=== PATIENT | female | born 1985 | race Caucasian/White ===

== ENCOUNTER 2024-08-30 03:29 | Emergency (ER) | payer OTHER, SELFPAY ==
--- NOTE | 2024-08-30 03:31 | ED_ITS ---
HPI - General Adult General Time Seen by Provider: 03:31 Date Seen: 08/30/24 Chief complaint: Unspecified Complaint, Adult Stated complaint: Heart Racing Time Seen by Provider: 08/30/24 03:31 Source: patient, RN notes reviewed and old records reviewed Mode of arrival: ambulatory Limitations: no limitations History of Present Illness HPI narrative: 39-year-old female who comes in today with palpitations. Patient reports she understood the bathroom, got back to through the bed and felt like her heart was beating fast, felt some shortness when lightheadedness as well. Reports her heart rate was about 120. She feels better now although not back to normal. Denies recent illness, medications, alcohol or caffeine use. No prior episodes like this. [facility] Medical History (Updated 08/30/24 @ 04:27 by Julian Appiah MD) No significant past medical history Surgical History (Updated 08/30/24 @ 03:36 by Yan Fernández RN) No significant past surgical history Social History Smoking Status: Never smoker Second hand tobacco smoke exposure: No How often do you have a drink containing alcohol: never AUDIT-C Alcohol total score: 0 Non-prescribed substance use: denies use Exam Narrative: Exam Narrative: General: Well-developed and well-nourished, no acute distress Head: Atraumatic and normocephalic Eyes: Pupils are equal reactive, extraocular motions intact, conjunctiva clear ENT: External nose and ears are normal, posterior pharynx without erythema or exudate Neck: No midline cervical tenderness, full spontaneous range of motion the neck, trachea midline, no adenopathy Heart: Regular rate and rhythm no murmurs or thrills Lungs: Clear to auscultation bilaterally without wheezes or crackles Abdomen: Soft, nontender, nondistended with active bowel sounds Musculoskeletal: No tenderness, deformity, or edema Neurologic: Awake, alert, and oriented x3, no gross focal neurologic deficits, cranial nerves intact as tested Psych: Mood and affect are appropriate Skin: No rashes Const: Vital Signs, click to edit/add: Vital Signs - 24 hr 08/30/24 03:33 Temperature 98.2 F Pulse Rate [Right Pulse Oximeter] 82 Respiratory Rate 18 Blood Pressure [Ri ght Upper Arm] 145/81 H Pulse Oximetry 99 Oxygen Delivery Me thod Room Air Course Course ED Course: Reviewed medical record, no prior records. Patient presents today with palpitations and shortness of breath with lightheadedness occurring just prior to coming the emergency department. Symptoms are improved now. She reports her heart rate was around 120. We discussed possible causes for this including sinus tachycardia, VT. Atrial flutter fibrillation less likely. EKG is reassuring, labs ordered and will monitor in the department. If normal evaluation, patient be discharged with outpatient evaluation including Zio patch and consider echocardiogram. Did consider D-dimer or CT PE study but no pleuritic-type chest pain with this, oxygen saturation 99%, tachycardia resolved. EKG independently interpreted by me performed at 3:39 a.m. demonstrates sinus rhythm rate 86, right axis deviation, nonspecific T-wave changes, no acute ischemic changes, QTC 445, WY 150, no prior for comparison. Reevaluation(s) Time of Reevaluation #1: 04:25 Reevaluation #1: Labs independently interpreted by me with mild anemia but otherwise normal CBC, negative D-dimer, normal basic panel other than glucose of 156, magnesium normal, troponin 0.01. Patient remains stable in the emergency department no tachycardia. Follow-up with primary care for Holter monitor and further evaluation. Vital Signs Vital signs: Initial Vital Signs Temperature 98.2 F 08/30/24 03:33 Temperature Source Temporal Artery Scan 08/30/24 03:33 Pulse Rate 82 08/30/24 03:33 Pulse Rhythm Regular 08/30/24 03:33 Pulse Strength 3+ Normal 08/30/24 03:33 Respiratory Rate 18 08/30/24 03:33 Blood Pressure 145/81 H 08/30/24 03:33 Blood Pressure Mean 102 08/30/24 03:33 Blood Pressure Position Sitting 08/30/24 03:33 Pulse Oximetry 99 08/30/24 03:33 Oxygen Delivery Method Room Air 08/30/24 03:33 Vital Signs Temperature 98.2 F 08/30/24 03:33 Pulse Rate 82 08/30/24 03:33 Respiratory Rate 18 08/30/24 03:33 Blood Pressure 145/81 H 08/30/24 03:33 Pulse Oximetry 99 08/30/24 03:33 Oxygen Delivery Method Room Air 08/30/24 03:33 Temperature 98.2 F 08/30/24 03:33 Pulse Rate 82 08/30/24 03:33 Respiratory Rate 18 08/30/24 03:33 Blood Pressure 145/81 H 08/30/24 03:33 Pulse Oximetry 99 08/30/24 03:33 Oxygen Delivery Method Room Air 08/30/24 03:33 Medical Decision Making Lab Data Labs: Lab Results 08/30/24 08/30/24 Range/Units 03:48 03:50 WBC 6.54 (4.50-11.00) K/uL RBC 3.85 L (4.00-5.20) m/uL Hgb 11.9 L (12.0-16.0) gm/dL Hct 35.4 (33.0-51.0) % MCV 92 (80-100) fL MCH 31 (26-34) pg MCHC 34 (32-36) gm/dL RDW Coeff of Janki 12.0 (11.5-15.5) % Plt Count 233 (140-440) K/uL Neut % (Auto) 58.4 (42.0-72.0) % Lymph % (Auto) 28.0 (20-44) % Lamar % (Auto) 6.7 (0.0-11.0) % Eos % (Auto) 6.3 (0.0-7.0) % Baso % (Auto) 0.6 (0.0-3.0) % Neut # (Auto) 3.82 (1.7-7.0) K/uL Lymph # (Auto) 1.83 (0.90-2.90) K/uL Lamar # (Auto) 0.40 (0.00-0.90) K/UL Eos # (Auto) 0.41 (0.00-0.50) K/uL Baso # (Auto) 0.04 (0.00-0.30) K/uL Abs Immat Gran (auto) 0.00 (0.00-0.30) K/uL Imm/Tot Granulo (auto) 0.0 % D-Dimer Quant (PE/DVT) 0.06 (0.00-0.50) ug/ml Sodium 138 (135-149) mmol/L Potassium 3.7 (3.6-5.1) mmol/L Chloride 104 (96-114) mmol/L Carbon Dioxide 26 (20-32) mmol/L Anion Gap 8 (7-15) mEq/L BUN 16 (5-24) mg/dL Creatinine 0.8 (0.5-1.5) mg/dL Estimated Creat Clear 89.26 Estimated GFR 97 ml/min Glucose 156 H (60-115) mg/dL Calcium 9.2 (8.4-10.6) mg/dL Magnesium 2.0 (1.5-2.6) mg/dL POC Troponin I 0.01 (0.01-0.04) ng/ml Discharge Plan Discharge Clinical Impression: Palpitations Patient Disposition: Home, Self-Care Instructions: Heart Palpitations (DC) Additional Instructions: Follow-up with primary care for further evaluation and treatment Activity Level: No Restrictions Discharge Diet: Regular Follow Up/Referrals: Provider,Not a Local [Primary Care Provider, Family Practice] Stand Alone Forms: MyHealth Info Instructions
[2024-08-30 03:33] VITALS: BP 145/81; PULSE 82; RESP 18; TEMP 36.8; O2SAT 99; BMI 23.4
--- OUTSIDE RECORDS SUMMARY | 2024-08-30 03:52 | XMS_ITS | Encounter Summary ---
Author Organization [facility] Address [address] [place] [address] Care Team Providers Care Library Monitor Name Role Phone No Ref-Primary, Physician Primary Care Provider Esther Stodadrd CNM Unavailable EduardoJaniceMoraima CNM Unavailable Kelli Austin CNM Unavailable [phone] Janice Clark Jo CNM Unavailable Venus Robertson CNM Unavailable [phone] AustinEnzoKelli A CNM Unavailable [phone] Janice lCark CNM Unavailable Prakash Mercy DAWN CNM Unavailable [phone] Norman Kelli Spring CNM Unavailable [phone] Mer[facility] Randall APRN CNM Unavailable [phone] Janice Clark Jo CNM Unavailable Encounter Details Date Type Department Care Team (Late st Contact Info) Description 09/15/2021 [facility] [address] [place] [address] [place] [address] Chikis Ness, RN Social History Tobacco Use Types Packs/Day Years Used Date Smoking Tobacco: Never Smokeless Tobacco: Never Alcohol Use Standard Drinks/Week Comments No 0 (1 standard drink = 0.6 oz pur e alcohol) AUDIT-C Answer Date Recorded Frequency of Alcohol Consumption Never 02/24/2018 Average Number of Drinks Not on file 018 Frequency of Binge Drinking Not on file 01/30 PHQ-2 Answer Date Recorded PHQ-2 Score 0 09/18/2021 [place] Depression Scale Answer Date Recorded [place] Depression Score 4 10/13/2018 Last EPDS Self Harm Result Not on file 10/13 Education Answer Date Recorded What is the highest level of school you have completed or the highest degree you have received? Some college, no degree 02/20/2021 Comments Yes Sex and Gender Information Value Date Recorded Sex Assigned at Female 01/13/2021 2:33 PM PATHOLOGY LABORATORY AIDES TEACHER Legal Sex Female 1:03 PM PATHOLOGY LABORATORY AIDES TEACHER Gender Identity Female 01/13/2021 2:33 PM PATHOLOGY LABORATORY AIDES TEACHER Sexual Orientation Straight 01/13/2021 2: 33 PM PATHOLOGY LABORATORY AIDES TEACHER Occupation Industry Job Start Date Job End Date stay at home Mom Not on file Not on file Not on file COVID-19 Exposure Response Date Recorded In the last 10 days, have yo u been in contact with someone who was confirmed or suspected to have Coronavirus/COVID-19? Unable to assess 09/18/2021 8:25 AM CDT documented as of this encounter Plan of Treatment Not on file documented as of this encounter Visit Diagnoses Not on filedocumented in this encounter Care Teams Library Monitor Relationship Specialty Start Date End Date No Ref-Primary, Physician PCP - General 02/24/18 Esther Stoddard CNM [address] [place] [id number] Assigned OBGYN Provider 03/16/21 2 Janice Clark CNM [address] [id number] Assigned OBGYN Provider 10/04/21 2 Kelli Austin CNM [address] [place] [address] Assigned OBGYN Provider 11/01/21 Janice Clark CNM [address] [facility] [address] [place] [address] Assigned OBGYN Provider 12/27/21 Venus Robertson CNM [address] [place] [address] Assigned OBGYN Provider 11/29/2112/26 Kelli Austin CNM [address] [place] [address] Assigned OBGYN Provider 01/31/22 Janice Clark CNM [address] [facility] [address] [place] [address] Assigned OBGYN Provider 03/21/22 3 Mercy Randall APRN CNM [address] [facility] [address] [place] [address] Assigned OBGYN Provider 11/07/22 Kleli Austin CNM [address] [place] [address] Assigned OBGYN Provider 04/23/23 Mercy Randall APRN CNM [address] [facility] [address] [place] [address] Assigned OBGYN Provider 06/22/23 Janice Clark CNM [address] [address] Assigned OBGYN Provider 11/22/2312/20 documented as of this encounter
--- OUTSIDE RECORDS SUMMARY | 2024-08-30 03:52 | XMS_ITS | Clinical Summary ---
Author Organization [facility] Address [address] [place] [address] Care Team Providers Care Check Out Clerk Name Role Phone No Ref-Primary, Physician Primary Care Provider Allergies Active Allergy Reactions Criticality Noted Date Comments Blood Transfusion Related (Informational Only) Other (See Comments) High 09/24/2018 Patient has a history of a clinically significant antibody against RBC antigens. A delay in compatible RBCs may occur. Medications Vit-Fe Fumarate-FA ( VITAMINS) 28-0.8 MG TABS 02/24/2018 Active Active Problems Problem Noted Date Diagnosed Date Multigravida of advanced maternal age in first t rimester 10/29/2021 Overview (02/11/2022): Clinic/Hospital: [facility] Partner Name: Afshin Ultrasound predicts sex: Childrens names/ages: Previous labor experiences: unmedicated, last labor fast Waterbirth (interest, declined, ineligible): Level of education/occupation: Pertinent History: PP contraception: vasectomy Hx PPD/Depression/Anxiety: Ed: Plans for labor pain management: unmedicated Plans for post recovery/time off: Feeding preference: Breast pump: Peds provider: Car seat: Circumcision: Discussed 2 week visit: Tdap: Flu: Covid vaccine: Ovarian cyst 03/13/2021 Type O blood, Rh negative 03/13/2021 Resolved Problems Problem Noted Date Diagnosed Date Resolved Date Indication for care in labor or delivery 04/18/2022 05/04/2022 Threatened 03/13/2021 05/05/19 Indication for care in labor or delivery 09/24/2018 03/13/2021 Normal labor and delivery 09/24/2018 Encounter for triage in patient 09/18/2018 03/13/2021 Supervision of normal 08/10/2018 10/13/2018 Immunizations Immunization Administration Dates Next Due Rhogam 01/28/2022,09/25/2018,07/13/2018 TDAP (Adacel,Boostrix) 02/11/2022 TDAP Vaccine (Adacel) 07/27/2018 Family History Medical History Relation Comments No Known Problems Brother 1 No Known Problems Brother 2 No Known Problems Father No Known Problems Mother No Known Problems Sister Relation Status Comments Brother 1 Alive Brother 2 Alive Father Alive Maternal Grandfather Maternal Grandmother Mother Alive Paternal Grandfather Paternal Grandmother Alive Sister Alive Social History Tobacco Use Types Packs/Day Years Used Date Smoking Tobacco: Never Smokeless Tobacco: Never Tobacco Cessation:Counseling Given: Not Answered Alcohol Use Standard Drinks/Week Comments No 0 (1 standard drink = 0.6 oz pur e alcohol) AUDIT-C Answer Date Recorded Frequency of Alcohol Consumption Never 02/24/2018 Average Number of Drinks Not on file 018 Frequency of Binge Drinking Not on file 01/30 PHQ-2 Answer Date Recorded PHQ-2 Score 0 05/04/2022 [place] Depression Scale Answer Date Recorded Last EPDS Total Score Not on file 06/04/2022 The thought of harming myself has occurred to me . Never 06/04/2022 Adolescent Education Answer Date Record ed Getting School Help Needed Not on file 11/20 Education Answer Date Recorded What is the highest level of school you have completed or the highest degree you have received? Some college, no degree 02/20/2021 Comments No Sex and Gender Information Value Date Recorded Sex Assigned at Female 01/13/2021 2:33 PM PICK AND SHOVEL MAN Legal Sex Female 1:03 PM P[employer] AND SHOVEL MAN Gender Identity Female 01/13/2021 2:33 PM P[employer] AND SHOVEL MAN Sexual Orientation Straight 01/13/2021 2: 33 PM [employer]EL MAN Occupation Industry Job Start Date Job End Date stay at home Mom Not on file Not on file Not on file Last Filed Vital Signs Vital Sign Reading Time Taken Comments Blood Pressure 116/70 06/04/2022 10:08 AM CDT Pulse 95 04/20/2022 8:28 AM [employer]OVEL MAN Temperature 36.9 C (98.5 F) 04/20/2022 8:28 AM P[employer] AND SHOVEL MAN Respiratory Rate 16 04/20/2022 8:28 AM P[employer] AND SHOVEL MAN Oxygen Saturation 100% 10/27/2021 8:26 AM CDT Inhaled Oxygen Concentration - - Weight 68.2 kg (150 lb 6.4 oz) 06/04/2022 10:08 AM CDT Height 167.6 cm (5' 6) 04/19/2022 11:00 AM [employer]OVEL MAN Body Mass Index 24.28 04/19/2022 11:00 AM P[employer] SHOVEL MAN Plan of Treatment Health Maintenance Due Date Last Done Comments ADVANCE CARE PLANNING 1986 ANNUAL REVIEW OF HM ORDERS 1986 YEARLY PREVENTIVE VISIT 1989 HEPATITIS B VACCINE (1 of 3 - 19+ 3-dose series) 2005 COVID-19 VACCINE ( season) 2023 PHQ-2 (once per calendar year) 2024 05/04/2022, 03/18/2022, 10/01/2021, Additional history exists DIABETES SCREENING 03/04/2024 03/04/2021 INFLUENZA VACCINE (Season Ended) 2024 HPV TEST 10/01/2026 10/01/2021, 10/01/2021 PAP 10/01/2026 10/01/2021, 08/04/2021, 10/01/2021, Additional history exists DTAP/TDAP/TD VACCINE (3 - Td or Tdap) 02/12/2032 02/11/2022, 07/27/2018 ZOSTER VACCINE (1 of 2) 2036 HEPATITIS C SCREENING Completed 09/25/2021, 022 HIV SCREENING Completed 09/25/2021, 03/01, 02/24/2018 HPV VACCINE Aged Out No longer eligi ble based on patient's age to complete this topic MENINGITIS VACCINE Aged Out No longer eligible based on patient's age to complete this topic PNEUMOCOCCAL VACCINE: PEDIATRICS (0 to 5 YEARS) AND AT-RISK PATIENTS (6 to 49 YEARS) Aged Out No longer eligible based on patient's age to complete this topic Procedures Procedure Name Priority Date/Time Associated Diagnosis Comments GYNECOLOGIC CYTOLOGY Routine 10/01/2021 11:04 AM CDT Screening for cervical cancer Multigravida of advanced maternal age in first trimester HPV HIGH RISK TYPES DNA CERVICAL Routine 10/01/2021 11:04 AM CDT Screening for cervical cancer Multigravida of advanced maternal age in first trimester HIV ANTIGEN ANTIBODY COMBO Routine 09/25/2021 2:36 PM CDT Supervision of high-risk of elderly multigravida HEPATITIS C ANTIBODY Routine 09/25/2021 2:36 PM CDT Supervision of high-risk of elderly multigravida BASIC METABOLIC PANEL STAT 03/04/2021 6:31 PM P[employer] AND SHOVEL MAN from Last 3 Months or Most Recently Relevant to Health Maintenance Results * Pap thin layer screen with HPV - recommended age 30 - 65 years (10/01/2021 11:04 AM CDT) Interpretation Negative for Intraepithelial Lesion or Malignancy (NILM) 10/03/2021 1:43 PM CDT [facility] at 1343 CDT Comment Papanicolaou Test Limitations: Cervical cytology is a screening test with limited sensitivity, and regular screening is critical for cancer prevention. Pap tests are primarily effective for the diagnosis/prevent ion of squamous cell carcinoma, not adenocarcinoma or other cancers. 10/03/2021 1:43 PM CDT [facility] Specimen Adequacy Satisfactory for eval, endocerv/transfor m zone component absent, patient 10/03/2021 1:43 PM CDT [facility] Clinical Information 10/03/2021 1:43 PM CDT [facility] Reflex Testing Yes regardless of result 10/03/2021 1:43 PM CDT [facility] Previous Abnormal? No 10/03/2021 1:43 PM CDT [facility] Performing Labs The technical component of this testing was completed at [facility] 10/03/2021 1:43 PM CDT [facility] Brushing CERVIX UTERI STRUCTURE / Unknown 10/01/2021 11:04 AM CDT 10/01/2021 11:28 AM CDT us Janice Clark CNM LAB - BEAKER AP Final Result [facility] Specialty Lab [address] [facility], [address] [place] [id number], [facility] [phone] * HPV High Risk Types DNA Cervical (10/01/2021 11:04 AM CDT) Other HR HPV Negative Negative 10/07/2021 1:00 PM CDT [facility] HPV16 DNA Negative Negative 10/07/2021 1:00 PM CDT [facility] HPV18 DNA Negative Negative 10/07/2021 1:00 PM CDT [facility] FINAL DIAGNOSIS This patient's sample is negative for HPV DNA. This test was developed and its performance characteristics determined by the [facility], Molecular Diagnostics Laboratory. It has not been cleared or approved by the FDA. The laboratory is regulated under CLIA as qualified to perform high-complexity testing. This test is used for clinical purposes. It should not be regarded as investigational or for research. METHODOLOGY: The Harinder Domingo 4800 system uses automated extraction, simultaneous amplification of HPV (L1 region) and beta-globin, followed by real time detection of fluorescent labeled HPV and beta globin using specific oligonucleotide probes. The test specifically identified types HPV 16 DNA and HPV 18 DNA while concurrently detecting the rest of the high risk types (31, 33, 35, 39, 45, 51, 52, 56, 58, 59, 66 or 68). COMMENTS: This test is not intended for use as a screening device for woman under age 30 with normal cervical cytology. Results should be correlated with cytologic and histologic findings. Close clinical followup is recommended. 10/07/2021 1:00 PM CDT [facility] Brushing CERVIX UTERI STRUCTURE / Unknown Non-blood Collection / Unknown 10/01/2021 11:04 AM CDT 10/06/2021 9:33 AM CDT us Camacho Jo Eduardo [facility] LAB - BLOOD ORDERABLES Final Result MOLECULAR DIAGNOSTICS Molecular Diagnostics [address] [facility], [address] [address], [facility] [phone] * HIV Antigen Antibody Combo (09/25/2021 2:36 PM CDT) HIV Antigen Antibody Combo Nonreactive Nonreactive 09/26/2021 9:36 AM CDT SPECIALTY CORE/PROT/EN DO Comment:HIV-1 p24 Ag & HIV-1 /HIV-2 Ab Not Detected Blood STRUCTURE OF RIGHT UPPER LIMB / Unknown Venipuncture / Unknown 09/25/2021 2:36 PM CDT 09/25/2021 2:36 PM CDT MoraimaShakira Clark [facility] LAB - BLOOD ORDERABLES Final Result [facility] CORE/PROT/ENDO Specialty Core/Prot/Endo [address] [facility], [address] [phone] * Hepatitis C antibody (09/25/2021 2:36 PM CDT) Hepatitis C Antibody Nonreactive Nonreactive 09/26/2021 9:36 AM CDT SPECIALTY CORE/PROT/EN DO Blood STRUCTURE OF RIGHT UPPER LIMB / Unknown Venipuncture / Unknown 09/25/2021 2:36 PM CDT 09/25/2021 2:36 PM CDT Narrative SPECIALTY CORE/PROT/ENDO - 09/26/2021 9:36 AM CDT Assay performance characteristics have not been established for newborns, infants, and children. Janice Rosenberg Eduardo [facility] LAB - BLOOD ORDERABLES Final Result [facility] CORE/PROT/ENDO Specialty Core/Prot/Endo [address] [facility], [address] [phone] * (ABNORMAL) Basic metabolic panel (BMP) (03/04/2021 6:31 PM P[employer] AND SHOVEL MAN) Sodium 139 133 - 144 mmol/L 03/04/2021 7:05 PM [facility] Potassium 3.3(L) 3.4 - 5.3 mmol/L 03/04/2021 7:05 PM [facility] Chloride 108 94 - 109 mmol/L 03/04/2021 7:05 PM [facility] Carbon Dioxide (CO2) 24 20 - 32 mmol/L 03/04/2021 7:05 PM [facility] Anion Gap 7 3 - 14 mmol/L 03/04/2021 7:05 PM [facility] Urea Nitrogen 13 7 - 30 mg/dL 03/04/2021 7:05 PM [facility] Creatinine 0.67 0.52 - 1.04 mg/dL 03/04/2021 7:05 PM [facility] Calcium 9.1 8.5 - 10.1 mg/dL 03/04/2021 7:05 PM [facility] Glucose 133(H) 70 - 99 mg/dL 03/04/2021 7:05 PM [facility] GFR Estimate >90 >60 mL/min/1.7 3m2 03/04/2021 7:05 PM [facility] Comment:Effective January 302020 eGFRcr in adults is calculated using the 2020 CKD-EPI creatinine equation which includes age and gender (Ajith et al., NEJ, DOI: 10.1056/VZELfr9691771) Blood STRUCTURE OF RIGHT UPPER LIMB / Unknown Venipuncture / Unknown 03/04/2021 6:31 PM P[employer] SHOVEL MAN 03/04/2021 6:45 PM [facility] us Humberto Villalta MD LAB - BLOOD ORDERABLES Fi nal Result LABORATORY [facility] [address] Lab (1st floor, no room number) [place] [address], [facility] [phone] from Last 3 Months or Most Recently Relevant to Health Maintenance Insurance BCBS OUT OF STATE BCBS OUT OF STATE Advance Directives For more information, please contact: [phone] * Full Code (Latest Code Status on File) Date Activated Date Inactivated Comments 04/19/2022 10:24 AM 04/19/2022 10:36 AM All basic and advanced life-sustaining interventions are performed as appropriate Question Answer Comments Code status determined by: Discussion with breanna nt/ legal decision maker * Full Code Date Activated Date Inactivated Comments 04/18/2022 11:58 PM 04/19/2022 8:40 AM All basic a nd advanced life-sustaining interventions are performed as appropriate Question Answer Comments Code status determined by: Discussion with breanna nt/ legal decision maker Care Teams Check Out Clerk Relationship Specialty Start Date End Date No Ref-Primary, Physician PCP - General 02/24/18
--- OUTSIDE RECORDS SUMMARY | 2024-08-30 03:52 | XMS_ITS | Encounter Summary ---
Author Organization [facility] Address [address] [place] [address] Care Team Providers Care Inner Diameter Grinder Tool Name Role Phone No Ref-Primary, Physician Primary Care Provider Esther Stoddard CNM Unavailable EduardoJaniceMoraima CNM Unavailable Kelli Austin CNM Unavailable [phone] Janice Clark CNM Unavailable Venus Robertson CNM Unavailable [phone] AustinEnzoKelli A CNM Unavailable [phone] Janice Clark CNM Unavailable Prakash Mercy DAWN CNM Unavailable Norman Kelli Spring CNM Unavailable [phone] Mercy Randall APRN CNM Unavailable [phone] Janice Clark Jo CNM Unavailable Encounter Details Date Type Department Care Team (Late st Contact Info) Description 03/14/2021 [facility] [address] [place] [address] [place] [address] Radha Foote, RN Social History Tobacco Use Types Packs/Day [...] PHQ-2 Answer Date Recorded PHQ-2 Score 0 02/20/2021 [place] Depression Scale Answer Date Recorded [place] Depression Score 4 10/13/2018 Last EPDS Self Harm Result Not on file 10/13 Education Answer Date Recorded What is the highest level of school you have completed or the highest degree you have received? Some college, no degree 02/20/2021 Comments Yes Sex and Gender Information Value Date Recorded Sex Assigned at Female 01/13/2021 2:33 PM CRACKER DOUGH MIXER Legal Sex Female 1:03 PM CRACKER DOUGH MIXER Gender Identity Female 01/13/2021 2:33 PM CRACKER DOUGH MIXER Sexual Orientation Straight 01/13/2021 2: 33 PM CRACKER DOUGH MIXER Occupation Industry Job Start Date Job End Date stay at home Mom Not on file Not on file Not on file COVID-19 Exposure Response Date Recorded In the last month, have you been in contact with someone who was confirmed or suspected to have Coronavirus / COVID-19? No / Unsure 03/17/2021 2:03 PM CRACKER DOUGH MIXER documented as of this encounter Plan of Treatment Not on file documented as of this encounter Visit Diagnoses Not on filedocumented in this encounter Care Teams Inner Diameter Grinder Tool Relationship Specialty Start Date End Date No Ref-Primary, Physician PCP - General 02/24/18 Esther Stoddard CNM [address] [place] [address] Assigned OBGYN Provider 03/16/21 2 Janice Clark CNM [address] [id number] Assigned OBGYN Provider 10/04/21 2 Kelli Austin CNM [address] [place] [address] Assigned OBGYN Provider 11/01/21 Janice Clark CNM [address] [place] [address] Assigned OBGYN Provider 12/27/21 Venus Robertson CNM [address] [place] [address] Assigned OBGYN Provider 11/29/2112/26 Kelli Austin CNM [address] [place] [address] Assigned OBGYN Provider 01/31/22 Janice Clark CNM [address] [place] [address] Assigned OBGYN Provider 03/21/22 3 Mercy Randall APRN CNM [address] [facility] [address] [place] [address] Assigned OBGYN Provider 11/07/22 Kelli Austin CNM [address] [place] [address] Assigned OBGYN Provider 04/23/23 Mercy Randall APRN CNM [address] [facility] [address] [place] [address] Assigned OBGYN Provider 06/22/23 Janice Clark CNM [address] [address] Assigned OBGYN Provider 11/22/2312/20 documented as of this encounter
[2024-08-30 03:54] LABS: Hematocrit 35.4 % (33.0-51.0); Hemoglobin* 11.9 gm/dL (12.0-16.0); Immature Granulocytes Abs Auto 0.00 K/uL (0.00-0.30); Immature Granulocytes Pct Auto 0.0 %; Lymphocytes Absolute Auto 1.83 K/uL (0.90-2.90); Mean Corpuscular HGB Conc 34 gm/dL (32-36); Mean Corpuscular Hemoglobin 31 pg (26-34); Mean Corpuscular Volume 92 fL (80-100); RDW Coefficient of Variation % 12.0 % (11.5-15.5); Red Blood Count 3.85 m/uL (4.00-5.20); White Blood Count* 6.54 K/uL (4.50-11.00)
[2024-08-30 04:00] LABS: Troponin, Point-of-Care* 0.01 ng/ml (0.01-0.04)
[2024-08-30 04:02] LABS: Slide Review Reflex No
[2024-08-30 04:07] LABS: Chloride* 104 mmol/L (96-114); Potassium* 3.7 mmol/L (3.6-5.1); Sodium* 138 mmol/L (135-149)
[2024-08-30 04:10] LABS: Anion Gap 8 mEq/L (7-15); Blood Urea Nitrogen* 16 mg/dL (5-24); Calcium* 9.2 mg/dL (8.4-10.6); Carbon Dioxide* 26 mmol/L (20-32); Creatinine* 0.8 mg/dL (0.5-1.5); Est. Creatinine Clearance* 89.26; Estimated Glomerular Filt Rate 97 ml/min; Glucose* 156 mg/dL (60-115)
[2024-08-30 04:18] LABS: D Dimer Quantitative* 0.06 ug/ml (0.00-0.50)
[2024-08-30 04:36] VITALS: BP 138/74; PULSE 82; RESP 18; TEMP 36.8; O2SAT 99
[2024-08-30 04:37] VITALS: BP 138/74; PULSE 82; RESP 18; TEMP 36.8
== END 2024-08-30 04:37 | disposition home or self-care (01) ==
PROVIDERS: Emergency Provider Family Medicine
DX: R00.2 Palpitations (principal)
CPT/HCPCS: 36415; 80048; 83735; 84484; 85025; 85379; 93005; 99284

== ENCOUNTER 2024-12-05 13:29 | Emergency (ER) | payer OTHER, SELFPAY ==
[2024-12-05] VITALS (12 sets, daily range): BP systolic 116–146; BP diastolic 70–92; PULSE 72–83; RESP 11–18; TEMP 37; O2SAT 99–100; BMI 25.6
--- OUTSIDE RECORDS SUMMARY | 2024-12-05 11:20 | XMS_ITS | Encounter Summary ---
Author Organization [facility] Address [address], [place] [address] Care Team Providers Care Armed Security Guard Name Role Phone No Primary/Referring, Phy Primary Care Provider Unavailable Reason for Visit * Reason Comments DIZZINESS Encounter Details Date Type Department Care Team (Late st Contact Info) Description 12/05/2024 11:20 AM CDT Office Visit [facility] [place] [address] [place] [phone] Lulú Valentino MD [address] [place] [address] Dizzy (Primary Dx); Heart palpitations; Lightheadedness Social History Tobacco Use Types Packs/Day Years Used Date Smoking Tobacco: Never Smokeless Tobacco: Never Tobacco Cessation:Counseling Given: Not Answered Comments No Sex and Gender Information Value [...] - 12/05/2024 11:20 AM CDT PHYSICIAN NOTE [facility] Date of Service: 12/05/2024 Patient: Kelli Cowart Age: 39 y.o. Date Of : 1985 SUBJECTIVE Chief Complaint Patient presents with DIZZINESS CHART REVIEW / OUTSIDE RECORDS: YESTERDAY - NURSE CARE LINE for DIZZINESS: DESCRIPTION: Describe your dizziness. Lightheaded upon standing at [facility] and sitting down, feltlike I wasn't going [...] breakfast and had coffee. She went to [facility] feeling fine. At the end of tenriism singing she started to feel lightheaded and [...] lightheaded. She ate a breakfast sandwich from [employer] and then felt a bit better. The [...] her apple watch. This also happened at [facility] - her HR [id number] . She could feel her Heart POUNDING. [...] clear Face symmetrical No pronator drift Good residential field manager strength bilaterally Sensation is intact to light touch throughout ATAXIA: [id number] is rapid, accurate and symmetrical Heel-sthing is [...] QT 388 ms QTC 444 ms P [place] 36 degrees R [place] 95 degrees T [place] -11 degrees IMAGING RESULTS: No results found. [...] or depression. CONSULT: EKG was discussed with CHARRER, Dr. Chau, the EKG changes are very non-specific. He would recommend an outpatient ECHO and HOLTER MONITOR HGB NORMAL UPT is NEGATIVE. TSH: pending - will result tomorrow. IMPRESSION: orthostatic near syncope +/- palpitations -- discussed need for Holter monitor PLAN: outpatient follow up tomorrow for Holter monitor. Has PCP appointment scheduled. Holter monitors cannot be ordered from [facility]. Discussed indications to present to the Emergency [...] in this encounter Nursing Notes * Jennifer Cerna RN - 12/05/2024 11:20 AM CDT RN Emergency [...] documented in this encounter Plan of Treatment Upcoming Encounters Date Type Department Care Team (Late st Contact Info) Description 12/06/2024 10:00 AM CDT Appointment [facility] [address] [place] [phone] Talisha Rascon PA-C [address] [place], [place] [phone] Pending Results Name Type Priority Associated Diagnoses Date /Time TSH Lab Routine Dizzy 12/05/2024 12:23 PM CDT Scheduled Orders Name Type Priority Associated Diagnoses Orde r Schedule TSH Lab Routine Dizzy Expected: 12/05/2024, Expires: documented as of this encounter Procedures Procedure Name Priority Date/Time Associated Diagnosis Comments ECG 12 LEAD OUTPATIENT Routine 12/05/2024 12:07 PM CDT Heart palpitations documented in this encounter Results * Test (Urine) (12/05/2024 12:29 PM CDT) HCG, Urine Negative Negative 12/05/2024 12:33 PM CDT [facility] Urine Non-blood Collection / Unknown 12/05/2024 12:29 PM CDT 12/05/2024 12:29 PM CDT us Lulú Valentino MD LAB_1 Final Result [facility] CLIA: [id number] [address] [place] [address], [facility] * Hemoglobin, Blood (12/05/2024 12:23 PM CDT) Hemoglobin 12.9 12.0 - 15.5 g/dL 12/05/2024 12:30 PM CDT [facility] Blood Venipuncture / Unknown 12/05/2024 12:23 PM CDT 12/05/2024 12:25 PM CDT Lulú Valentino MD LAB_1 Final Result Performing Organization Address [facility] Co de Phone Number [facility] CLIA: [id number] [address] [place] [address] * EKG Outpatient (12/05/2024 12:07 PM CDT) Ventricular Rate 79 BPM [facility] Atrial Rate 79 BPM [facility] P-R Interval 124 ms [facility] QRS Duration 86 ms [facility] QT 388 ms [facility] QTC 444 ms [facility] P [place] 36 degrees [facility] R [place] 95 degrees [facility] T [place] -11 degrees [facility] 12/05/2024 12:0 7 [...] MD PN ECG ORDERABLES Final Resu lt Performing Organization Address [facility]/ZIP Co de Phone Number [facility] [address] [place] [address] documented in this encounter Visit Diagnoses Diagnosis Dizzy- Primary Dizziness and giddiness Heart palpitations Palpitations Lightheadedness Dizziness and giddiness documented in this encounter Care Teams Armed Security Guard Relationship Specialty Start Date End Date No Primary/Referring, Phy PCP - General 12/04/24 documented as of this encounter
--- OUTSIDE RECORDS SUMMARY | 2024-12-05 12:10 | XMS_ITS | Encounter Summary ---
Author Organization [facility] Address [address] [place] [address] Care Team Providers Care Blister Rust Eradicator Name Role Phone No Primary/Referring, Phy Primary Care Provider Unavailable Encounter Details Date Type Department Care Team (Late st Contact Info) Description 12/05/2024 12:10 PM CDT Lab Visit Laboratory at [facility] [address] [place] [phone] Dizzy Social History Tobacco Use Types Packs/Day Years Used Date Smoking Tobacco: Never Smokeless Tobacco: Never Comments No Sex and Gender Information Value Date Recorded Sex Assigned at Not on file Legal Sex Female 11:58 AM CDT Gender Identity Not on file Sexual Orientation Not on file documented as of this encounter Plan of Treatment Upcoming Encounters Date Type Department Care Team (Late st Contact Info) Description 12/06/2024 10:00 AM CDT Appointment [facility] [address] [place] [phone] Talisha Rascon PA-C [id number] [place] [address] Pending Results Name Type Priority Associated Diagnoses Date /Time TSH Lab Routine Dizzy 12/05/2024 12:23 PM CDT documented as of this encounter Procedures Procedure Name Priority Date/Time Associated Diagnosis Comments TEST (URINE) STAT 12/05/2024 12:29 PM CDT Dizzy HEMOGLOBIN, BLOOD STAT 12/05/2024 12: 23 PM CDT Dizzy documented in this encounter Results * Test (Urine) (12/05/2024 12:29 PM CDT) HCG, Urine Negative Negative 12/05/2024 12:33 PM CDT [facility] Urine Non-blood Collection / Unknown 12/05/2024 12:29 PM CDT 12/05/2024 12:29 PM CDT Trish Queen MD LAB_1 Final Result Performing Organization Address City/[facility]/ZIP Co de Phone Number [facility] CLIA: [id number] [address] [place] [address] * Hemoglobin, Blood (12/05/2024 12:23 PM CDT) Hemoglobin 12.9 12.0 - 15.5 g/dL 12/05/2024 12:30 PM CDT [facility] Blood Venipuncture / Unknown 12/05/2024 12:23 PM CDT 12/05/2024 12:25 PM CDT Trish Queen MD LAB_1 Final Result [facility] CLIA: [id number] [address] [place] [address] documented in this encounter Visit Diagnoses Diagnosis Dizzy Dizziness and giddiness documented in this encounter Care Teams Blister Rust Eradicator Relationship Specialty Start Date End Date No Primary/Referring, Phy PCP - General 12/04/24 documented as of this encounter
--- OUTSIDE RECORDS SUMMARY | 2024-12-05 13:33 | XMS_ITS | Clinical Summary ---
Author Organization [facility] Address [address] [place] [address] Care Team Providers Care Directional Drill Operator Name Role Phone Pcp, No Primary Care Provider Unavailabl e Allergies No known active allergies Medications mupirocin 2% ointmentIndicat ions:Nasal sore Apply topically to affected area(s) two times daily for 14 days. 22 g 11/19/19 25 Encounters Date Type Department Care Team Description 11/04/2024 3:35 PM CDT Office Visit [facility] - [address] [address] Joann Jasso NP Nose Problem (Sore in right nare) 11/04/2024 Travel from Last 3 Months Social History Tobacco Use Types Packs/Day Years Used Date Smoking Tobacco: Never Smokeless Tobacco: Never Tobacco Cessation:Counseling Given: Not Answered Social Connections Answer Date Recorded Do you often feel lonely or isolated from those around you? 0 11/04/2024 Financial Resource Strain Answer Date R ecorded Difficulty of Paying Living Expenses 3 11/04/2024 Difficulty of Paying Living Expenses Not on file 11/04/2024 Food Insecurity Answer Date Recorded Do you worry your food will run out before you are able to buy more? 1 11/04/2024 Transportation Needs Answer Date Record ed Does lack of transportation keep you from medica l appointments? 1 11/04/2024 Does lack of transportation keep you from work, meetings or getting things that you need? 1 11/04/2024 Housing Stability Answer Date Recorded What is your housing situation today? 1 11/04/2024 Utilities Answer Date Recorded Do you have trouble paying f or utilities (for example, heat, electricity, water, phone)? 1 11/04/2024 Comments Unknown Sex and Gender Information Value Date Recorded Sex Assigned at Not on file Legal Sex Female 3:33 PM CDT Gender Identity Not on file Sexual Orientation Not on file Obstetrics History Last Filed Vital Signs Vital Sign Reading Time Taken Comments Blood Pressure 142/79 11/04/2024 3:43 PM CDT Pulse 85 11/04/2024 3:43 PM CDT Temperature 36.8 C (98.2 F) 11/04/2024 3:43 PM CDT Respiratory Rate 16 11/04/2024 3:43 PM CDT Oxygen Saturation 100% 11/04/2024 3:43 PM CDT Inhaled Oxygen Concentration - - Weight 68 kg (150 lb) 11/04/2024 3:43 PM CDT Height - - Body Mass Index - - Plan of Treatment Health Maintenance Due Date Last Done Comments Tetanus booster 1997 Depression screening for age 12+ 1998 HIV for age 15-65 2001 BMI (ht and wt on same day) for age 18+ 2004 Hepatitis C screening for ag e 18-79 2004 Hepatitis B series for 19+ ( 1 of 3 - 19+ 3-dose series) 2005 Pap test for age 21-65 2007 HPV series for age 9-45 (1 - 3-dose SCDM series) 2013 COVID-19 vaccine series ( season) 2024 Influenza Vaccine (#1) 2024 RSV vaccine for adults or (1 - 1-dose 75+ series) 2061 Pneumococcal series for age 6-49 Aged Out No longer eligible based on patient's age to complete this topic Insurance [place] [address] Care Teams Directional Drill Operator Relationship Specialty Start Date End Date Pcp, No . PCP - General 11/04/24
--- OUTSIDE RECORDS SUMMARY | 2024-12-05 13:33 | XMS_ITS | Encounter Summary ---
Author Organization [facility] Address [address] [place] [address] Care Team Providers Care Small Craft Operator Name Role Phone No Primary/Referring, Phy Primary Care Provider Unavailable Reason for Visit * Reason Comments Pre-visit Planning Encounter Details Date Type Department Care Team ([facility] st Contact Info) Description 12/04/2024 Telephone Obstetrics & Gynecology at [address] [phone] Annia Mccullough MD [address] [place] [phone] Pre-visit Planning Social History Tobacco Use Types Packs/Day Years Used Date Smoking Tobacco: Never Assessed Comments Unknown Sex and Gender Information Value Date Recorded Sex Assigned at Not on file Legal Sex Female 11:58 AM CDT Gender Identity Not on file Sexual Orientation Not on file documented as of this encounter Nursing Notes * Starla Nicole I - 12/04/2024 12:50 PM CDT Patient reached, appointment has been cancelled. Patient will call ABDON Nicole 12/04/2024, 12:50 PM * Lexie Ortega LPN - 12/04/2024 12:31 PM CDT Patient is scheduled for a physical with Jamel on 12/06/24. Per note: she wants to discuss dizziness and lightheadedness. Please let patient know that those concerns aren't addressed by OBGYN. Patient needs to see primary care for those concerns and lab work. We are happy to see her for breast examand cervical cancer screening. Please let patient know. Lexie Ortega LPN 12/04/24 12:32 PM documented in this encounter Plan of Treatment Upcoming Encounters Date Type Department Care Team (Late st Contact Info) Description 12/06/2024 10:00 AM CDT Appointment [facility] [address] [place] [address] Talisha Rascon PA-C [address] [place] [address] documented as of this encounter Visit Diagnoses Not on filedocumented in this encounter Care Teams Small Craft Operator Relationship Specialty Start Date End Date No Primary/Referring, Phy PCP - General 12/04/24 documented as of this encounter
--- OUTSIDE RECORDS SUMMARY | 2024-12-05 13:33 | XMS_ITS | Encounter Summary ---
Author Organization [facility] Address [address] [place] [address] Care Team Providers Care Flare Breaker Name Role Phone No Ref-Primary, Physician Primary Care Provider Esther Stoddard CNM Unavailable Janice Clark CNM Unavailable [phone] Kelli Austin APRN CNM Unavailable Unavaila minesh Clark Moraima CNM Unavailable Venus Robertson CNM Unavailable Kelli Austin APRN CNM Unavailable Unavaila minesh Clark Moraima CNM Unavailable Mercy Randall APRN CNM Unavailable [phone] Kelli Austin APRN CNM Unavailable Unavaila Mercy Pacheco APRN CNM Unavailable [phone] Eduardo Moraima CNM Unavailable Encounter Details Date Type Department Care Team (Late st Contact Info) Description 03/14/2021 [facility] [address] [place] [address] Radha Foote, RN Social History [...] Answer Date Recorded PHQ-2 Score 0 02/20/2021 [place] Depression Scale Answer Date Recorded [place] Depression Score 4 10/13/2018 Last EPDS Self Harm Result Not on file 10/13 Education Answer Date Recorded What is the highest level of school you have completed or the highest degree you have received? Some college, no degree 02/20/2021 Comments Yes Sex and Gender Information Value Date Recorded Sex Assigned at Female 01/13/2021 2:33 PM OVEREDGE MACHINE OPERATOR Legal Sex Female 1:03 PM OVEREDGE MACHINE OPERATOR Gender Identity Female 01/13/2021 2:33 PM OVEREDGE MACHINE OPERATOR Sexual Orientation Straight 01/13/2021 2: 33 PM OVEREDGE MACHINE OPERATOR Occupation Industry Job Start Date Job End Date stay at home Mom Not on file Not on file Not on file COVID-19 Exposure Response Date Recorded In the last month, have you been in contact with someone who was confirmed or suspected to have Coronavirus / COVID-19? No / Unsure 03/17/2021 2:03 PM OVEREDGE MACHINE OPERATOR documented as of this encounter Plan of Treatment Not on file documented as of this encounter Visit Diagnoses Not on filedocumented in this encounter Care Teams Flare Breaker Relationship Specialty Start Date End Date No Ref-Primary, Physician PCP - General 02/24/18 Esther Stoddard CNM [address] [place] [address] Assigned OBGYN Provider 03/16/21 2 Janice Clark CNM [address] [address] Assigned OBGYN Provider 10/04/21 2 Kelli Austin APRN CNM Assigned OBGYN Provider 11/01/21 11/28/21 Janice Clark CNM [address] [place] [address] Assigned OBGYN Provider 12/27/21 Venus Robertson CNM [address] [place] [address] Assigned OBGYN Provider 11/29/2112/26 Kelli Austin APRN CNM Assigned OBGYN Provider 01/31/22 03/20/22 Janice Clark CNM [address] [place] [address] Assigned OBGYN Provider 03/21/22 3 Mercy Randall APRN CNM [address] [place] [address] [address] [place] [address] Assigned OBGYN Provider 11/07/22 Kelli Austin APRN CNM Assigned OBGYN Provider 04/23/23 06/21/23 Mercy Randall APRN CNM [address] [place] [address] [address] [place] [address] Assigned OBGYN Provider 06/22/23 Janice Clark CNM [address] [place] [address] Assigned OBGYN Provider 11/22/2312/20 documented as of this encounter
--- OUTSIDE RECORDS SUMMARY | 2024-12-05 13:33 | XMS_ITS | Encounter Summary ---
Author Organization Replaced by [facility] Address [address] [address] Care Team Providers Care Radio Reporter Name Role Phone No Primary/Referring, Phy Primary Care Provider Unavailable Encounter Details Date Type Department Care Team (Late st Contact Info) Description 12/05/2024 Results Follow-Up Replaced by [facility] [place] [address] [place] [address] Jennifer Cerna RN Social History Tobacco Use Types Packs/Day Years Used Date Smoking Tobacco: Never Smokeless Tobacco: Never Comments No Sex and Gender Information Value Date Recorded Sex Assigned at Not on file Legal Sex Female 11:58 AM CDT Gender Identity Not on file Sexual Orientation Not on file documented as of this encounter Progress Notes * Jennifer Cerna RN - 12/05/2024 12:30 PM CDT Routing to provider to review same day test result. documented in this encounter Plan of Treatment Upcoming Encounters Date Type Department Care Team (Late st Contact Info) Description 12/06/2024 10:00 AM CDT Appointment [facility] [address] [place] [phone] Talisha Rascon PA-C [address] [place] [address] documented as of this encounter Visit Diagnoses Not on filedocumented in this encounter Care Teams Radio Reporter Relationship Specialty Start Date End Date No Primary/Referring, Phy PCP - General 12/04/24 documented as of this encounter
--- OUTSIDE RECORDS SUMMARY | 2024-12-05 13:33 | XMS_ITS | Clinical Summary ---
Author Organization [facility] Address [address] [place] [address] Care Team Providers Care Manager Sap Name Role Phone No Ref-Primary, Physician Primary [...] Answer Date Recorded PHQ-2 Score 0 05/04/2022 [place] Depression Scale Answer Date Recorded Last EPDS [...] Sex Assigned at Female 01/13/2021 2:33 PM MORTUARY OPERATIONS MANAGER Legal Sex Female 1:03 PM MORTUARY OPERATIONS MANAGER Gender Identity Female 01/13/2021 2:33 PM MORTUARY OPERATIONS MANAGER Sexual Orientation Straight 01/13/2021 2: 33 PM MORTUARY OPERATIONS MANAGER Occupation Industry Job Start Date Job End Date stay at home Mom Not on file Not on file Not on file Last Filed Vital Signs Vital Sign Reading Time Taken Comments Blood Pressure 116/70 06/04/2022 10:08 AM CDT Pulse 95 04/20/2022 8:28 AM MORTUARY OPERATIONS MANAGER Temperature 36.9 C (98.5 F) 04/20/2022 8:28 AM MORTUARY OPERATIONS MANAGER Respiratory Rate 16 04/20/2022 8:28 AM MORTUARY OPERATIONS MANAGER Oxygen Saturation 100% 10/27/2021 8:26 AM CDT Inhaled Oxygen Concentration - - Weight 68.2 kg (150 lb 6.4 oz) 06/04/2022 10:08 AM CDT Height 167.6 cm (5' 6) 04/19/2022 11:00 AM MORTUARY OPERATIONS MANAGER Body Mass Index 24.28 04/19/2022 11:00 AM MORTUARY OPERATIONS MANAGER Plan of Treatment Health Maintenance Due Date Last Done Comments ADVANCE CARE PLANNING 1986 ANNUAL REVIEW OF HM ORDERS 1986 YEARLY PREVENTIVE VISIT 1989 HEPATITIS B VACCINE (1 of 3 - 19+ 3-dose series) 2005 PHQ-2 (once per calendar year) 2024 05/04/2022, 03/18/2022, 10/01/2021, Additional history exists DIABETES SCREENING 03/04/2024 03/04/2021 COVID-19 VACCINE ( season) 2024 INFLUENZA VACCINE (#1) 2024 HPV TEST 10/01/2026 10/01/2021, 10/01/2021 PAP 10/01/2026 10/01/2021, 08/04/2021, 10/01/2021, Additional history exists DTAP/TDAP/TD VACCINE (3 - Td or Tdap) 02/12/2032 02/11/2022, 07/27/2018 ZOSTER VACCINE (1 of 2) 2036 HEPATITIS C SCREENING Completed 09/25/2021, 022 HIV SCREENING Completed 09/25/2021, 03/01, 02/24/2018 HPV VACCINE (No Doses Required) Completed MENINGITIS VACCINE Aged Out No longer eligible [...] BASIC METABOLIC PANEL STAT 03/04/2021 6:31 PM MORTUARY OPERATIONS MANAGER from Last 3 Months or Most Recently [...] component of this testing was completed at [facility] 10/03/2021 1:43 PM CDT [facility] Brushing CERVIX UTERI STRUCTURE / Unknown 10/01/2021 11:04 AM CDT 10/01/2021 11:28 AM CDT Janice Clark CNM LAB - BEAKER AP Final Result [facility] Specialty Lab [address] [facility], [address] [address], [facility] [phone] * HPV High Risk Types DNA Cervical (10/01/2021 11:04 AM CDT) Other HR HPV Negative Negative 10/07/2021 1:00 PM CDT [facility] HPV16 DNA Negative Negative 10/07/2021 1:00 PM CDT [facility] HPV18 DNA Negative Negative 10/07/2021 1:00 PM CDT [facility] FINAL DIAGNOSIS This patient's sample is negative for HPV DNA. This test was developed and its performance characteristics determined by the [facility], Molecular Diagnostics Laboratory. It has not been [...] 11:04 AM CDT 10/06/2021 9:33 AM CDT Janice Clark CNM LAB - BLOOD ORDERABLES Final Result [facility] Molecular Diagnostics [address] [facility] [address], [address] [address], [facility] [phone] * HIV Antigen Antibody Combo (09/25/2021 2:36 PM CDT) HIV Antigen Antibody Combo Nonreactive Nonreactive 09/26/2021 9:36 AM CDT [facility] C[facility]/PROT/EN DO Comment:HIV-1 p24 Ag & HIV-1 /HIV-2 Ab Not Detected Blood STRUCTURE OF RIGHT UPPER LIMB / Unknown Venipuncture / Unknown 09/25/2021 2:36 PM CDT 09/25/2021 2:36 PM CDT Janice Clark CNM LAB - BLOOD ORDERABLES Final Result [facility] C[facility]/PROT/ENDO Specialty Core/Prot/Endo [address] [facility] [address] [facility], [address] [phone] * Hepatitis C antibody (09/25/2021 2:36 PM CDT) Hepatitis C Antibody Nonreactive Nonreactive 09/26/2021 9:36 AM CDT SPECIALTY CORE/PROT/EN DO Blood STRUCTURE OF RIGHT UPPER LIMB / Unknown Venipuncture / Unknown 09/25/2021 2:36 PM CDT 09/25/2021 2:36 PM CDT Narrative [facility]/PROT/ENDO - 09/26/2021 9:36 AM CDT Assay performance characteristics have not been established for newborns, infants, and children. Janice KNIGHT LAB - BLOOD ORDERABLES Final Result [facility]/PROT/ENDO Specialty Core/Prot/Endo [address] [facility] [address] [facility], [address] [phone] * (ABNORMAL) Basic metabolic panel (BMP) (03/04/2021 6:31 PM MORTUARY OPERATIONS MANAGER) Sodium 139 133 - 144 mmol/L 03/04/2021 7:05 PM [facility] Potassium (POCT) 3.3(L) 3.4 - 5.3 mmol/L 03/04/2021 7:05 PM [facility] Chloride (POCT) 108 94 - 109 mmol/L 03/04/2021 7:05 PM [facility] Carbon Dioxide (CO2) (POCT) 24 20 - 32 mmol/L 03/04/2021 7:05 PM [facility] Anion Gap (POCT) 7 3 - 14 mmol/L 03/04/2021 7:05 PM [facility] Urea Nitrogen (POCT) 13 7 - 30 mg/dL 03/04/2021 7:05 PM [facility] Creatinine 0.67 0.52 - 1.04 mg/dL 03/04/2021 7:05 PM [facility] Calcium 9.1 8.5 - 10.1 mg/dL 03/04/2021 7:05 PM [facility] Glucose (POCT) 133(H) 70 - 99 mg/dL 03/04/2021 7:05 PM [facility] GFR Estimate >90 >60 mL/min/1.7 3m2 03/04/2021 7:05 PM [facility] Comment:Effective January 302020 eGFRcr in adults is calculated using the 2020 CKD-EPI creatinine equation which includes age and gender (Ajith et al., NEJM, DOI: 10.1056/CZECya4010061) Blood STRUCTURE OF RIGHT UPPER LIMB / Unknown Venipuncture / Unknown 03/04/2021 6:31 PM MORTUARY OPERATIONS MANAGER 03/04/2021 6:45 PM MORTUARY OPERATIONS MANAGER us Humberto Villalta MD LAB - BLOOD ORDERABLES Fi nal Result LABORATORY [facility] [address] Lab (1st floor, no room number) [place] [address], [place] [phone] from Last 3 Months or Most Recently Relevant to Health Maintenance Insurance BCBS OUT OF STATE BCBS OUT OF STATE Advance Directives For more information, please contact: [phone] * Full Code (Latest Code Status on File) Date Activated Date Inactivated Comments 04/19/2022 10:24 AM 04/19/2022 10:36 AM All basic and advanced life-sustaining interventions are performed as appropriate Question Answer Comments Code status determined by: Discussion with patie nt/ legal decision maker * Full Code Date Activated Date Inactivated Comments 04/18/2022 11:58 PM 04/19/2022 8:40 AM All basic a nd advanced life-sustaining interventions are performed as appropriate Question Answer Comments Code status determined by: Discussion with patie nt/ legal decision maker Care Teams Manager Sap Relationship Specialty Start Date End Date No Ref-Primary, Physician PCP - General 02/24/18
--- OUTSIDE RECORDS SUMMARY | 2024-12-05 13:33 | XMS_ITS | Encounter Summary ---
Author Organization [place] Address [address] [place] [address] Care Team Providers Care Senior Outside Sales Representative Name Role Phone No Ref-Primary, Physician Primary Care Provider Esther Stoddard CNM Unavailable Janice Clark CNM Unavailable Kelli Austin APRN CNM Unavailable Unavaila minesh Clark Moraima CNM Unavailable Venus Robertson CNM Unavailable [phone] Kelli Austin APRN CNM Unavailable Unavaila minesh Clark Moraima CNM Unavailable Mercy Randall APRN CNM Unavailable [phone] Kelli Austin APRN CNM Unavailable Unavaila Mercy Pacheco APRN CNM Unavailable [phone] Eduardo Moraima CNM Unavailable Encounter Details Date Type Department Care Team (Late st Contact Info) Description 09/15/2021 [facility] Medical Advice [facility] [address] [place] [address] Chikis Ness, RN Social History [...] Answer Date Recorded PHQ-2 Score 0 09/18/2021 [place] Depression Scale Answer Date Recorded [place] Depression Score 4 10/13/2018 Last EPDS Self Harm Result Not on file 10/13 Education Answer Date Recorded What is the highest level of school you have completed or the highest degree you have received? Some college, no degree 02/20/2021 Comments Yes Sex and Gender Information Value Date Recorded Sex Assigned at Female 01/13/2021 2:33 PM TRUST MAIL CLERK Legal Sex Female 1:03 PM TRUST MAIL CLERK Gender Identity Female 01/13/2021 2:33 PM TRUST MAIL CLERK Sexual Orientation Straight 01/13/2021 2: 33 PM TRUST MAIL CLERK Occupation Industry Job Start Date Job End [...] on filedocumented in this encounter Care Teams Senior Outside Sales Representative Relationship Specialty Start Date End Date No Ref-Primary, Physician PCP - General 02/24/18 Esther Stoddard CNM [address] [place] [address] Assigned OBGYN Provider 03/16/21 2 Janice Clark CNM [address] [address] Assigned OBGYN Provider 10/04/21 2 Kelli Austin APRN CNM Assigned OBGYN Provider 11/01/21 11/28/21 Janice Clark CNM [address] [place] [address] Assigned OBGYN Provider 12/27/21 Venus Robertson CNM [address] [place] [address] Assigned OBGYN Provider 11/29/2112/26 Kelli Austin APRN CNM Assigned OBGYN Provider 01/31/22 03/20/22 Janice Clark CNM [address] [place] [address] Assigned OBGYN Provider 03/21/22 3 Mercy Randall APRN CNM [address] [place], [place] [address] [place] [address] Assigned OBGYN Provider 11/07/22 Kelli Austin APRN CNPamela Assigned OBGYN Provider 04/23/23 06/21/23 Mercy Randall APRN CNM [address] [place], [place] [address] [place] [address] Assigned OBGYN Provider 06/22/23 Janice Clark CNM [address] [place] [address] Assigned OBGYN Provider 11/22/2312/20 documented as of this encounter
--- OUTSIDE RECORDS SUMMARY | 2024-12-05 13:33 | XMS_ITS | Clinical Summary ---
Author Organization Formerly [facility], [facility] [place] [address] Care Team Providers Care Finished Stock Inspector Name Role Phone No Primary/Referring, Phy Primary Care Provider Unavailable Source Comments You are receiving this document as you are listed as the primary care provider,follow-up provider, or the patient has been referred to you for consultation.This is in compliance with the Medicare andMedicaid EHR Incentive Program,which states Providers who transition their patient to another setting of careor provider of care or refers their patient to another provider of care shouldprovide summary care record for each transition of care or referral. Formerly [facility], [facility] Allergies No known active allergies Medications mupirocin (BACTROBAN) 2 % ointment Apply topically two times a day. Active cetirizine (ZYRTEC) 10 MG tablet Take 1 Tablet (10 mg) by mouth daily. Active Encounters Date Type Department Care Team Description 12/05/2024 12:10 PM CDT Lab Visit Laboratory at [address] [phone] Dizzy 12/05/2024 11:20 AM CDT Office Visit [facility] [id number] [place] [phone] Trish Queen MD Dizzy (Primary Dx); Heart palpitations; Lightheadedness 12/05/2024 Results Follow-Up [facility] [id number] [place] [phone] Jennifer Cerna RN 12/04/2024 Nurse Triage [facility] [address] [phone] Found, No Pcp, DIZZINESS 12/04/2024 Telephone Obstetrics & Gynecology at [facility] [address] [place] [phone] Annia Mccullough MD Pre-visit Planning from Last 3 Months Social History Tobacco Use Types Packs/Day Years Used Date Smoking Tobacco: Never Smokeless Tobacco: Never Tobacco Cessation:Counseling Given: Not Answered Comments No Sex and Gender Information Value Date Recorded Sex Assigned at Not on file Legal Sex Female 11:58 AM CDT Gender Identity Not on file Sexual Orientation Not on file Last Filed Vital Signs [...] Mass Index - - Plan of Treatment Upcoming Encounters Date Type Department Care Team (Late st Contact Info) Description 12/06/2024 10:00 AM CDT Appointment [facility] [address] [place] [phone] Talisha Rascon P[address]ye[address] [address] [place], [place] [phone] Health Maintenance Due Date Last Done Comments Cervical Cancer Screening Due 1986 Hep C Screening (Preventive Services) 1986 HIV Screening (Preventive Services) 2002 Adult Preventive Visit 2004 HepB Vaccine (1) 2005 HPV Vaccine (1 - 3-dose SCDM series) 2013 COVID-19 Vaccine ( - 2023-2 5 season) 2024 Influenza Vaccine (#1) 2024 DTaP/Tdap/Td Vaccine (3 - Tdap) 02/12/2032 02/11/2022, 07/27/2018 Zoster/Shingles Vaccine (1 o f 2) 2036 HepA Vaccine Aged Out No longer eligi ble based on patient's age to complete this topic Hib Vaccine Aged Out No longer eligi ble based on patient's age to complete this topic IPV (Polio) Vaccine Aged Out No longe r eligible based on patient's age to complete this topic MCV4 Vaccine Aged Out No longer eligi ble based on patient's age to complete this topic Meningococcal B Vaccine Aged Out No l onger eligible based on patient's age to complete this topic Pneumococcal Vaccine Aged Out No long er eligible based on patient's age to complete this topic Procedures Procedure Name Priority Date/Time Associated Diagnosis Comments TEST (URINE) STAT 12/05/2024 12:29 PM CDT [facility] HEMOGLOBIN, BLOOD STAT 12/05/2024 12: 23 PM CDT [facility] ECG 12 LEAD OUTPATIENT Routine 12/05/2024 12:07 PM CDT Heart palpitations from Last 3 Months Results * Test (Urine) (12/05/2024 12:29 PM CDT) HCG, Urine Negative Negative 12/05/2024 12:33 PM CDT [facility] Urine Non-blood Collection / Unknown 12/05/2024 12:29 PM CDT 12/05/2024 12:29 PM CDT Trihs Queen MD LAB_1 Final Result [facility] CLIA: [id number] [address] [place] [address] * Hemoglobin, Blood (12/05/2024 12:23 PM CDT) Hemoglobin 12.9 12.0 - 15.5 g/dL 12/05/2024 12:30 PM CDT [facility] Blood Venipuncture / Unknown 12/05/2024 12:23 PM CDT 12/05/2024 12:25 PM CDT Trish Queen MD LAB_1 Final Result Performing Organization Address [facility]/ZIP Co de Phone Number [facility] CLIA: [id number] [address] [place] [address] * EKG Outpatient (12/05/2024 12:07 PM CDT) Ventricular Rate 79 BPM [facility] Atrial Rate 79 BPM [facility] P-R Interval 124 ms [facility] QRS Duration 86 ms [facility] QT 388 ms [facility] QTC 444 ms [facility] P Moro 36 degrees [facility] R Moro 95 degrees [facility] T Moro -11 degrees [facility] 12/05/2024 12:0 7 [...] Lex Baxter ([id number]) on 12/05/2024 1:27:15 PM Trish Queen MD PN ECG ORDERABLES Final Resu lt Performing Organization Address City/[facility]/ZIP Co de Phone Number [facility] [address] [place] [address] from Last 3 Months Insurance [facility] Care Teams Finished Stock Inspector Relationship Specialty Start Date End Date No Primary/Referring, Phy PCP - General 12/04/24
--- OUTSIDE RECORDS SUMMARY | 2024-12-05 13:33 | XMS_ITS | Encounter Summary ---
Author Organization [facility] Address [address], [place] [address] Care Team Providers Care Binder Technician Name Role Phone No Primary/Referring, Phy Primary Care Provider Unavailable Reason for Visit * Reason Comments DIZZINESS Encounter Details Date Type Department Care Team (Late st Contact Info) Description 12/04/2024 Nurse Triage [facility] [address] [place] [phone] Found, No Pcp, [address] [place] [address] DIZZINESS Social History Tobacco Use Types Packs/Day Years Used Date Smoking Tobacco: Never Assessed Comments Unknown Sex and Gender Information Value Date Recorded Sex Assigned at Not on file Legal Sex Female 11:58 AM CDT Gender Identity Not on file Sexual Orientation Not on file documented as of this encounter Nursing Notes * Tarsha Stanley, RN - 12/04/2024 1:22 PM CDT Vinson Hold Per RN, Scheduling Information AV Frontline, pls reach out to patient to schedule with family medicine (ideally someone opn to newpatients) within the next 3 days. Department:Family Med Provider: Provider open to new clients Date/time: office visit within next 3 days Visit Type: office visit/establish care Appt Notes: Light-headedness yesterday Appt Priority: Within 3 days per protocol --- Reason for Disposition [1] MILD dizziness (e.g., walking normally) AND [2] has NOT been evaluated by doctor (or DIRECTOR INBOUND SALES/PA) forthis (Exception: Dizziness caused by heat exposure, sudden standing, or poor fluid intake.) Answer Assessment - Initial Assessment Questions 1. DESCRIPTION: Describe your dizziness. Lightheaded upon standing at mosque and sitting down, felt like I wasn't going to faint 2. LIGHTHEADED: Do you feel lightheaded? (e.g., somewhat faint, woozy, weak upon standing) yes 3. VERTIGO: Do you feel like either you or the room is spinning or tilting? (i.e., vertigo) no 4. SEVERITY: How bad is it? Do you feel like you are going to faint? Can you stand and walk? moderate 5. ONSET: When did the dizziness begin? A couple months ago woke up in middle of night with racing heartbeat. Went to and everything wasfine, just went away. 6. AGGRAVATING FACTORS: Does anything make it worse? (e.g., standing, change in head position) Change in head position (sitting down at mosque yest) 7. HEART RATE: Can you tell me your heart rate? How many beats in 15 seconds? (Note: Not all patients can do this.) Yesterday was 130, resting HR is much lower 8. CAUSE: What do you think is causing the dizziness? (e.g., decreased fluids or food, diarrhea, emotional distress, heat exposure, new medicine, sudden standing, vomiting; unknown) Hormonal? 9. RECURRENT SYMPTOM: Have you had dizziness before? If Yes, ask: When was the last time? Whathappened that time? Yes couple months ago happened overnight 10. OTHER SYMPTOMS: Do you have any other symptoms? (e.g., fever, chest pain, vomiting, diarrhea,bleeding) no 11. : Is there any chance you are ? When was your last menstrual period? no Protocols used: Dizziness - Veouitcslxsoleu-Ncgdc-RS * Kaitlynn Pederson - 12/04/2024 1:11 PM CDT Caller reports the following red flag symptoms: pt has dizziness, lightheaded and heart racing Plan: Transferred directly to appropriate RN. documented in this encounter Plan of Treatment Upcoming Encounters Date Type Department Care Team (Late st Contact Info) Description 12/06/2024 10:00 AM CDT Appointment [address] [phone] Talisha Rascon, PAPopeyeC [address] [place] [address] documented as of this encounter Visit Diagnoses Not on filedocumented in this encounter Care Teams Binder Technician Relationship Specialty Start Date End Date No Primary/Referring, Phy PCP - General 12/04/24 documented as of this encounter
--- NOTE | 2024-12-05 13:58 | ED_ITS ---
HPI - General Adult General Time Seen by Provider: 13:58 Date Seen: 12/05/24 Chief complaint: Dizziness/Vertigo Stated complaint: dizziness and lightheaded Time Seen by Provider: 12/05/24 13:42 Source: patient and RN notes reviewed Mode of arrival: ambulatory Limitations: no limitations History of Present Illness HPI narrative: This 39-year-old female was referred from [facility]. Her symptoms started on Wednesday, today is Wednesday. She was just sitting in [employer] where she started to feel really lightheaded, like she might pass out, her heart felt like it was racing, her watch said her heart rate was 130s. She did sit down, symptoms abated. The ambulance did come but she signed. Was feeling better. She had another episode this morning, has had other episodes. This morning her heart rate was 120 and went up when just sitting there. She feels a little chest tightness with this. She is had 6 prior pregnancies, has had of a cecectomy. Her hCG test was negative at urgent care today. She states they did an EKG in hemoglobin which were reportedly normal. They talked about having her do a Holter monitor. She has had no recent travel, surgery or immobilization. She does take flje-hwi-kmyvswj Zyrtec for seasonal allergies. They had a cough and cold in the house about 2 weeks ago, no residual symptoms with her. She has never had anything like this before. There is no family history of blood clots that she is aware of. There is a grandfather that was on a blood thinner, may have been heart related, she is not sure. She is not aware of any definite arrhythmias in the family. She does think the grandfather that was on the blood thinner did have something with his heart, she just does not know more than that. Related Data Home Medications ?Medication ?Instructions ?Recorded ?Confirmed cetirizine 10 mg tablet (24Hour 10 mg PO DAILY PRN 09/2212/05/24 Allergy) Allergies Allergy/AdvReac Type Severity Reaction Status Date / Time No Known Drug Allergies Allergy Verified 12/05/24 13:39 Review of Systems Status of ROS: Reports: 6 or more systems reviewed and unremarkable except as noted in History and below [facility] Medical History No significant past medical history Surgical History No significant past surgical history Social History Smoking Status: Never smoker Second hand tobacco smoke exposure: No How often do you have a drink containing alcohol: never AUDIT-C Alcohol total score: 0 Non-prescribed substance use: denies use Exam Const: Vital Signs, click to edit/add: Vital Signs - 24 hr 12/05/24 13:36 12/05/24 14:34 12/05/24 14:35 Temperature 98.6 F Pulse Rate 81 80 Pulse Rate [Pulse Oximeter] 74 Respiratory Rate 18 14 16 Blood Pressure 124/73 Blood Pressure [Ri ght Upper Arm] 146/92 H Pulse Oximetry 99 100 100 Oxygen Delivery Me thod Room Air 12/05/24 14:38 12/05/24 14:45 12/05/24 15:00 Temperature Pulse Rate 76 79 Pulse Rate [Pulse Oximeter] Respiratory Rate 15 14 Blood Pressure Blood Pressure [Ri ght Upper Arm] Pulse Oximetry 99 100 100 Oxygen Delivery Me thod 12/05/24 15:01 12/05/24 15:02 12/05/24 15:15 Temperature Pulse Rate 83 76 80 Pulse Rate [Pulse Oximeter] Respiratory Rate 14 16 17 Blood Pressure 126/78 Blood Pressure [Ri ght Upper Arm] Pulse Oximetry 100 100 100 Oxygen Delivery Me thod 12/05/24 15:30 12/05/24 15:31 12/05/24 15:45 Temperature Pulse Rate 77 72 82 Pulse Rate [Pulse Oximeter] Respiratory Rate 11 L 15 17 Blood Pressure 116/70 Blood Pressure [Ri ght Upper Arm] Pulse Oximetry 100 100 100 Oxygen Delivery Me thod This 39-year-old female is alert, interactive, no apparent distress. Seen exam room 3, present. Pupils equal round reactive, sclerae clear, extraocular muscles intact. Symmetrical facial function. Neck is supple, no adenopathy, no thyromegaly masses or nodules. Lungs are clear, good air entry, no wheezing or crackles, no tachypnea, no accessory muscle use. CV regular rate and rhythm, no murmur, normal S1-S2, S3-S4. Abdomen is soft, nontender, nondistended, organomegaly, rebound or guarding, no masses. She has no lower extremity edema. Patient did ambulate in. Documenting provider has reviewed patient's vital signs: yes Course Course ED Course: Per patient's watch, her episodes are coupled with tachycardia, the rate would suggest sinus tachycardia. Have discussed with patient this could be arrhythmia, need to see the actual EKG during this spell. We discussed if workup is normal here, potentially doing a Zio patch which is a 2 week monitoring on discharge. We will do screening D-dimer, this would be followed by chest CT PE protocol if the D-dimer is elevated. Will have her on cardiac monitoring and pulse oximetry, look for hypoxia and arrhythmia. Will also do full complement of labs including troponin. Will do a TSH as well. Will look at electrolytes and CBC. I am not going to repeat a test on this patient, was negative at urgent care and do not feel it is necessary to repeat. Reevaluation(s) Time of Reevaluation #1: 15:57 Reevaluation #1: Have reviewed with patient that all of her labs are normal, we reviewed specifically the troponin, D-dimer, thyroid. Nursing staff is working on the paperwork to do the Zio patch. We have seen no arrhythmia or hypoxia on her monitoring. Vital Signs Vital signs: Initial Vital Signs Temperature 98.6 F 12/05/24 13:36 Temperature Source Temporal Artery Scan 12/05/24 13:36 Pulse Rate 74 12/05/24 13:36 Pulse Rhythm Regular 12/05/24 13:36 Pulse Strength 3+ Normal 12/05/24 13:36 Respiratory Rate 18 12/05/24 13:36 Blood Pressure 146/92 H 12/05/24 13:36 Blood Pressure Mean 110 H 12/05/24 13:36 Blood Pressure Position Sitting 12/05/24 13:36 Pulse Oximetry 99 12/05/24 13:36 Oxygen Delivery Method Room Air 12/05/24 13:36 Vital Signs Temperature 98.6 F 12/05/24 13:36 Pulse Rate 74 12/05/24 13:36 Respiratory Rate 18 12/05/24 13:36 Blood Pressure 146/92 H 12/05/24 13:36 Pulse Oximetry 99 12/05/24 13:36 Oxygen Delivery Method Room Air 12/05/24 13:36 Temperature 98.6 F 12/05/24 13:36 Pulse Rate 82 12/05/24 15:45 Respiratory Rate 17 12/05/24 15:45 Blood Pressure 116/70 12/05/24 15:31 Pulse Oximetry 100 12/05/24 15:45 Oxygen Delivery Method Room Air 12/05/24 13:36 Medical Decision Making Lab Data Labs: Lab Results 12/05/24 Range/Units 14:20 WBC 9.40 (4.50-11.00) K/uL RBC 4.17 (4.00-5.20) m/uL Hgb 12.7 (12.0-16.0) gm/dL Hct 38.3 (33.0-51.0) % MCV 92 (80-100) fL MCH 31 (26-34) pg MCHC 33 (32-36) gm/dL RDW Coeff of Janki 11.7 (11.5-15.5) % Plt Count 237 (140-440) K/uL Neut % (Auto) 76.4 H (42.0-72.0) % Lymph % (Auto) 16.9 L (20-44) % [place] % (Auto) 5.0 (0.0-11.0) % Eos % (Auto) 1.2 (0.0-7.0) % Baso % (Auto) 0.4 (0.0-3.0) % Neut # (Auto) 7.20 H (1.7-7.0) K/uL Lymph # (Auto) 1.60 (0.90-2.90) K/uL [place] # (Auto) 0.50 (0.00-0.90) K/UL Eos # (Auto) 0.11 (0.00-0.50) K/uL Baso # (Auto) 0.04 (0.00-0.30) K/uL Abs Immat Gran (auto) 0.01 (0.00-0.30) K/uL Imm/Tot Granulo (auto) 0.1 % D-Dimer Quant (PE/DVT) < 0.27 (0.00-0.50) ug/ml Sodium 137 (135-149) mmol/L Potassium 4.1 (3.6-5.1) mmol/L Chloride 104 (96-114) mmol/L Carbon Dioxide 25 (20-32) mmol/L Anion Gap 8 (7-15) mEq/L BUN 15 (5-24) mg/dL Creatinine 0.8 (0.5-1.5) mg/dL Estimated Creat Clear 89.26 Estimated GFR 97 ml/min Glucose 165 H (60-115) mg/dL Calcium 9.1 (8.4-10.6) mg/dL Magnesium 2.0 (1.5-2.6) mg/dL Total Bilirubin 0.3 (0.1-1.5) mg/dL AST 28 (12-35) U/L ALT 21 (4-35) U/L Alkaline Phosphatase 66 (40-150) U/L Troponin I < 0.01 (0.01-0.04) ng/mL NT-Pro-B Natriuret Pep 33 (See Note) pg/mL Total Protein 7.5 (6.0-8.3) g/dL Albumin 4.4 (3.3-5.0) g/dL TSH 0.665 (0.270-4.200) uIU/mL ECG Data Attestation: I personally reviewed and interpreted this ECG as follows: (Normal sinus rhythm, 76 beats per minute flipped T-waves lead 3 but otherwise no acute ST segment change or significant Q-waves.) Prior ECG tracings: available for review Discharge Plan Discharge Clinical Impression: Pre-syncope, Tachycardia Patient Disposition: Home, Self-Care Condition: Stable Instructions: Near Syncope (ED), Tachycardia (ED) Additional Instructions: Complete the Zio patch and return as per instructions. If you notice elevated heart rate that is sustained, causing shortness of breath or chest symptoms, please seek emergent re-evaluation. Is important to try to catch an EKG or rhythm strip on the monitor while you are having the fast heart rate to help us see what it is. Certainly the Zio patch will capture this. If you have further concerns or issues, please seek re-evaluation interim. I would keep your appointment tomorrow but will not need the Holter monitor done as you have the Zio patch on. Activity Level: Activity as Tolerated Prescriptions: No Action cetirizine [24Hour Allergy] 10 mg tablet 10 mg PO DAILY PRN Follow Up/Referrals: Provider,Not a Local [Primary Care Provider, Family Practice] Stand Alone Forms: [employer] Info Instructions
[2024-12-05 14:38] LABS: Hematocrit* 38.3 % (33.0-51.0); Hemoglobin* 12.7 gm/dL (12.0-16.0); Immature Granulocytes Abs Auto 0.01 K/uL (0.00-0.30); Immature Granulocytes Pct Auto 0.1 %; Mean Corpuscular HGB Conc 33 gm/dL (32-36); Mean Corpuscular Hemoglobin 31 pg (26-34); Mean Corpuscular Volume 92 fL (80-100); RDW Coefficient of Variation % 11.7 % (11.5-15.5); Red Blood Count* 4.17 m/uL (4.00-5.20); White Blood Count* 9.40 K/uL (4.50-11.00)
[2024-12-05 14:42] LABS: Lymphocytes Absolute Auto 1.60 K/uL (0.90-2.90); Slide Review Reflex No
[2024-12-05 14:45] LABS: Chloride* 104 mmol/L (96-114); Sodium* 137 mmol/L (135-149)
[2024-12-05 14:46] LABS: Albumin* 4.4 g/dL (3.3-5.0); Potassium* 4.1 mmol/L (3.6-5.1)
[2024-12-05 14:48] LABS: Anion Gap 8 mEq/L (7-15); Carbon Dioxide* 25 mmol/L (20-32)
[2024-12-05 14:49] LABS: Alanine Aminotransferase* 21 U/L (4-35); Alkaline Phosphatase* 66 U/L (40-150); Aspartate Amino Transferase* 28 U/L (12-35); Bilirubin Total* 0.3 mg/dL (0.1-1.5); Blood Urea Nitrogen* 15 mg/dL (5-24); Calcium* 9.1 mg/dL (8.4-10.6); Creatinine* 0.8 mg/dL (0.5-1.5); Est. Creatinine Clearance* 89.26; Estimated Glomerular Filt Rate 97 ml/min; Glucose* 165 mg/dL (60-115); Total Protein* 7.5 g/dL (6.0-8.3)
[2024-12-05 14:51] LABS: D Dimer Quantitative* < 0.27 ug/ml (0.00-0.50)
[2024-12-05 15:19] LABS: NT Pro B Type NatriureticPept* 33 pg/mL (See Note)
[2024-12-05 15:54] LABS: TSH With Reflex to FT4* 0.665 uIU/mL (0.270-4.200)
== END 2024-12-05 16:35 | disposition home or self-care (01) ==
PROVIDERS: Emergency Provider Family Medicine
DX: R55 Syncope and collapse (principal); R00.0 Tachycardia, unspecified
CPT/HCPCS: 36415; 80053; 83735; 83880; 84443; 84484; 85025; 85379; 93005; 94761; 99284

== ENCOUNTER 2024-12-08 00:30 | Emergency (ER) | payer OTHER, SELFPAY ==
--- OUTSIDE RECORDS SUMMARY | 2024-12-05 11:20 | XMS_ITS | Encounter Summary ---
Author Organization [facility] Address [address], [place] [address] Care Team Providers Care Director Learning Name Role Phone No Primary/Referring, Phy Primary Care Provider Unavailable Reason for Visit * Reason Comments DIZZINESS Encounter Details Date Type Department Care Team (Late st Contact Info) Description 12/05/2024 11:20 AM CDT Office Visit [facility] [place] [id number] [place] [phone] Lulú Valentino MD [address] [place] [address] Dizzy (Primary Dx); Heart palpitations; Lightheadedness Social History Tobacco Use Types Packs/Day Years Used Date Smoking Tobacco: Never Smokeless Tobacco: Never Tobacco Cessation:Counseling Given: Not Answered PHQ-2 Answer Date Recorded PHQ-2 Score 0 12/06/2024 Comments No Sex and Gender Information Value Date Recorded Sex Assigned at Not on file Legal Sex Female 11:58 AM CDT Gender Identity Not on file Sexual Orientation Not on file documented as of this encounter Last Filed Vital Signs Vital Sign Reading Time Taken Comments Blood Pressure 140/86 12/05/2024 11:18 AM CDT Pulse 86 12/05/2024 11:18 AM CDT Temperature 36.2 C (97.1 F) 12/05/2024 11:16 AM CDT Respiratory Rate 20 12/05/2024 11:16 AM CDT Oxygen Saturation 100% 12/05/2024 11:18 AM CDT Inhaled Oxygen Concentration - - Weight - - Height - - Body Mass Index - - documented in this encounter Patient Instructions * Patient Instructions* Lulú Valentino MD - 12/05/2024 11:20 AM CDT YOU WERE SEEN FOR PALPITATIONS TODAY. YOUR EXAMINATION AND TESTS WERE REASSURING. Your exam showed a regular pulse Your EKG did not show a heart rhythm problem Your labs that resulted today were also normal. The THYROID FUNCTION lab test was sent today and will result in 1 to 2 days. Please follow up on this test result in your primary care clinic. DISCUSS a CARDIAC ECHO and a HOLTER MONITOR with your doctor in clinic tomorrow. FOLLOW UP & RETURN PRECAUTIONS: Schedule follow in your primary care clinic tomorrow as scheduled. Go to the EMERGENCY DEPARTMENT if you develop chest pain, trouble breathing, symptoms of feeling faint worsen or if you faint (loss of consciousness). PLEASE DO THE FOLLOWING TO CARE FOR YOURSELF: Eliminate all caffeine from your diet Avoid alcohol as well. Start a calendar of your symptoms and bring this record to your follow up clinic appointment. documented in this encounter Progress Notes * Lulú Valentino MD - 12/05/2024 11:20 AM CDT PHYSICIAN NOTE [facility] [place] Date of Service: 12/05/2024 Patient: Kelli Cowart Age: 39 y.o. Date Of : 1985 SUBJECTIVE Chief Complaint Patient presents with DIZZINESS CHART REVIEW / OUTSIDE RECORDS: YESTERDAY - NURSE CARE LINE for DIZZINESS: DESCRIPTION: Describe your dizziness. Lightheaded upon standing at [facility] and sitting down, feltlike I wasn't going to faint LIGHTHEADED: Do you feel lightheaded? (e.g., somewhat faint, woozy,weak upon standing) yes VERTIGO: Do you feel like either you or the room is spinning or tilting? no HEART RATE: Can you tell me your heart rate? Yesterday was 130, resting HR is much lower RECURRENT SYMPTOM: Have you had dizziness before? Yes couple months ago happened overnight Kelli Cowart is a 39 y.o.female who presents to for evaluation of DIZZINESS. TRIAGE REPORT: Symptoms began: 2 day(s) ago and were intermittent. Appt with PCP scheduled tomorrow, but feeling worse today so spouse brought her in for eval sooner. Symptoms: coordination problems, dizziness, and weakness. Some diarrhea on Wednesday, no N/V Pain present No. Previous episodes or similar occurrence never. Any home remedies tried None. HISTORY FROM PATIENT: She is here for dizziness. She first noted the dizziness on Wednesday. (2 daysago). Today is day 3. On Wednesday she was fine. She was doing housework and laundry and did not feel dizzy at all. She ate and drank normally on Wednesday. No alcohol use Wednesday. She woke up Wednesday morning feeling normal. She ate breakfast and had coffee. She went to [facility] feeling fine. At the end of druze singing she started to feel lightheaded and her vision startedto feel blurry. She thought she was going to faint so she sat down. Sitting down helped. They called EMS to check her out. She felt better after eating 3 donut holes and decided not to get checked out. The rest of the day Wednesday was ok. She rested for the remainder of the day. She woke up Wednesday (YESTERDAY) morning feeling better. Mid-morning she felt shaky and lightheaded. She ate a breakfast sandwich from [employer] and then felt a bit better. The rest of the day was normal. She did not have another episode. This morning (WEDNESDAY) she woke up feeling fine. She made breakfast (wheat toast and 2 eggs) and had some coffee. She got the kids off to school. She spent the morning playing with her 2yo. Around 9:30 AM she stared to feel dizzy while walking into the house from outside. She reports that she felt weak in her legs and the legs felt heavy. Just a sense of lightheaded like she might faint. On the drive to clinic her HR was 120 on her apple watch. This also happened at [facility] - her HR [id number] . She could feel her Heart POUNDING. She feels ok now other than a little shaky. During the episodes her mouth gets really, really dry. She reports that she had a miscarriage and blacked out about 3 years ago. She feels like she did atthat time. She was bleeding heavily at that time. She is not currently bleeding. She last had her menses NOV 23 - NOV 29. Her first few days are heavy - 3 super tampons / day. Then she goes down to2 super tampons / day. Denies black or bloody stools. She could not be . Her had a vasectomy. ROS: NO Nausea NO Vomiting NO Diarrhea currently but she did have 4 loose BM's on Wednesday, the day this started NO Fever NO Cough NO Runny nose NO Post-nasal drip NO Facial / sinus congestion Anything else? NO RED FLAGS: NO NEW facial droop NO NEW weakness on one side of the body NO NEW numbness YES NEW trouble walking -- during the episodes it feels like she is going to pass out while walking NO NEW trouble talking NO NEW trouble using hands to write, groom or feed self NO NEW double vision OBJECTIVE Patient Vitals for the past 12 hrs: BP Temp Temp src Pulse Resp SpO2 12/05/24 1118 (!) 140/86 -- -- 86 -- 100 % 12/05/24 1116 (!) 143/82 97.1 ??F (36.2 ??C) Tympanic 90 20 100 % Physical Exam Vitals reviewed. Constitutional: General: She is not in acute distress. Appearance: Normal appearance. She is normal weight. She is not ill-appearing or diaphoretic. Cardiovascular: Rate and Rhythm: Normal rate and regular rhythm. Pulses: Normal pulses. Heart sounds: Normal heart sounds. Pulmonary: Effort: Pulmonary effort is normal. Skin: General: Skin is warm and dry. Capillary Refill: Capillary refill takes less than 2 seconds. Neurological: Mental Status: She is alert. Comments: NEURO EXAM: Awake, alert, and O x3 Speech clear Face symmetrical No pronator drift Good core driller strength bilaterally Sensation is intact to light touch throughout ATAXIA: [id number]-[id number] is rapid, accurate and symmetrical Heel-sthing is accurate and symmetrical Patient is steady sitting upright EOMI's are intact Vsiual Garcia are intact NYSTAGMUS:NONE IMAGES SCANNED INTO CHART TODAY: NONE LABS, RADIOLOGY & INTERVENTIONS LAB RESULTS: Results for orders placed or performed in visit on 12/05/24 Hemoglobin, Blood Result Value Ref Range Hemoglobin 12.9 12.0 - 15.5 g/dL Test (Urine) Result Value Ref Range HCG, Urine Negative Negative Results for orders placed or performed in visit on 12/05/24 EKG Outpatient Result Value Ref Range Ventricular Rate 79 BPM Atrial Rate 79 BPM P-R Interval 124 ms QRS Duration 86 ms QT 388 ms QTC 444 ms P [place] 36 degrees R [place] 95 degrees T [place] -11 degrees IMAGING RESULTS: No results found. MEDICATIONS ADMINISTERED IN CLINIC: PROCEDURES: NONE ASSESSMENT & PLAN MEDICAL DECISION MAKING: Patient seen and assessed. Presented to Urgent Care for episodes of near syncope on standing up and2 episode of palpitations in which her HR was at 120 and 130 on her apple watch. VITALS here are NORMAL. EKG shows NSR w/ rate of 79. Nonspecific T wave abnormality in the inferior leads. RIGHT axis deviation. No ST elevation or depression. CONSULT: EKG was discussed with BILLBOARD ERECTOR, Dr. Chau, the EKG changes are very non-specific. He would recommend an outpatient ECHO and HOLTER MONITOR HGB NORMAL UPT is NEGATIVE. TSH: pending - will result tomorrow. IMPRESSION: orthostatic near syncope +/- palpitations -- discussed need for Holter monitor PLAN: outpatient follow up tomorrow for Holter monitor. Has PCP appointment scheduled. Holter monitors cannot be ordered from [facility]. Discussed indications to present to the Emergency Department including chest pain -- ADDENDUM: While discussing the DC instructions patient reported to me that she did have some chest tightness in the morning today. Discussed going to ED now for cardiac enzymes (TROPONINS) to be checked today. is with her and will drive her. She does NOT currently have Chest tightness at this time. CLINICAL IMPRESSION: Dizzy - Hemoglobin, Blood; Future - Test (Urine); Future - TSH; Future - HP Direct: Consult Request Heart palpitations - EKG Outpatient - HP Direct: Consult Request Lightheadedness - HP Direct: Consult Request Other orders - mupirocin (BACTROBAN) 2 % ointment; Apply topically two times a day. (Patient not taking: Reported on 12/05/2024) - cetirizine (ZYRTEC) 10 MG tablet; Take 1 Tablet (10 mg) by mouth daily. DISPOSITION: Home DISCHARGE INSTRUCTIONS: Patient Instructions YOU WERE SEEN FOR PALPITATIONS TODAY. YOUR EXAMINATION AND TESTS WERE REASSURING. Your exam showed a regular pulse Your EKG did not show a heart rhythm problem Your labs that resulted today were also normal. The THYROID FUNCTION lab test was sent today and will result in 1 to 2 days. Please follow up on this test result in your primary care clinic. DISCUSS a CARDIAC ECHO and a HOLTER MONITOR with your doctor in clinic tomorrow. FOLLOW UP & RETURN PRECAUTIONS: Schedule follow in your primary care clinic tomorrow as scheduled. Go to the EMERGENCY DEPARTMENT if you develop chest pain, trouble breathing, symptoms of feeling faint worsen or if you faint (loss of consciousness). PLEASE DO THE FOLLOWING TO CARE FOR YOURSELF: Eliminate all caffeine from your diet Avoid alcohol as well. Start a calendar of your symptoms and bring this record to your follow up clinic appointment. LULÚ VALENTINO MD 12/05/2024 documented in this encounter Nursing Notes * Jennifer Cerna, LUCILLE - 12/05/2024 11:20 AM CDT RN Emergency response called at 1112 Brief description of patient and what caused RN stat: Dizziness See triage encounter dated: 12/05/2024 Kelli Cowart is a 39 y.o.female presents to the Urgent Care for DIZZINESS Symptoms began: 2 day(s) ago and were intermittent. Symptoms: coordination problems, dizziness, and weakness. Some diarrhea on Wednesday, no N/V Pain present No. Previous episodes or similar occurrence never. Any home remedies tried None. Appt with PCP scheduled tomorrow, but feeling worse today so spouse brought her in for eval sooner. Patient requests an excuse letter for work/school: No Jennifer, RN documented in this encounter Plan of Treatment Not on file documented as of this encounter Procedures Procedure Name Priority Date/Time Associated Diagnosis Comments ECG 12 LEAD OUTPATIENT Routine 12/05/2024 12:07 PM CDT Heart palpitations documented in this encounter Results * Test (Urine) (12/05/2024 12:29 PM CDT) HCG, Urine Negative Negative 12/05/2024 12:33 PM CDT [facility] Urine Non-blood Collection / Unknown 12/05/2024 12:29 PM CDT 12/05/2024 12:29 PM CDT Lulú Valentino MD LAB_1 Final Result Performing Organization Address [facility]/ZIP Co de Phone Number [facility] CLIA: [id number] [address] [place] [id number] * TSH (12/05/2024 12:23 PM CDT) TSH, Sensitive 0.89 0.30 - 4.50 uIU/mL 12/05/2024 3:30 PM CDT [facility] Blood Venipuncture / Unknown 12/05/2024 12:23 PM CDT 12/05/2024 12:25 PM CDT Lulú Valentino MD LAB_1 Final Result [facility] CLIA: [id number] [address] [address] * Hemoglobin, Blood (12/05/2024 12:23 PM CDT) Hemoglobin 12.9 12.0 - 15.5 g/dL 12/05/2024 12:30 PM CDT [facility] Blood Venipuncture / Unknown 12/05/2024 12:23 PM CDT 12/05/2024 12:25 PM CDT us Lulú Valentino MD LAB_1 Final Result Performing Organization Address City/[facility]/ZIP Co de Phone Number [facility] CLIA: [id number] [place] [address] * EKG Outpatient (12/05/2024 12:07 PM CDT) Ventricular Rate 79 BPM [facility] Atrial Rate 79 BPM [facility] P-R Interval 124 ms [facility] QRS Duration 86 ms [facility] QT 388 ms [facility] QTC 444 ms [facility] P [place] 36 degrees [facility] R [place] 95 degrees [facility] T [place] -11 degrees [facility] 12/05/2024 12:0 7 PM CDT Narrative [facility] - 12/05/2024 1:27 PM CDT Sinus rhythm Rightward axis Abnormal QRS-T angle, consider primary T wave abnormality Abnormal ECG No previous ECGs available Confirmed by Lex Baxter ([id number]) on 12/05/2024 1:27:15 PM Procedure Note Pamela Baxter MD - 12/05/2024 Sinus rhythm Rightward axis Abnormal QRS-T angle, consider primary T wave abnormality Abnormal ECG No previous ECGs available Confirmed by Lex Baxter ([id number]) on 12/05/2024 1:27:15 PM Lulú Valentino MD PN ECG ORDERABLES Final Resu lt [facility] [address] [place] [address] documented in this encounter Visit Diagnoses Diagnosis Dizzy- Primary Dizziness and giddiness Heart palpitations Palpitations Lightheadedness Dizziness and giddiness documented in this encounter Care Teams Director Learning Relationship Specialty Start Date End Date No Primary/Referring, Phy PCP - General 12/04/24 documented as of this encounter
--- OUTSIDE RECORDS SUMMARY | 2024-12-05 12:10 | XMS_ITS | Encounter Summary ---
Author Organization [facility] Address [address] [place] [address] Care Team Providers Care Pr Manager Name Role Phone No Primary/Referring, Phy Primary Care Provider Unavailable Encounter Details Date Type Department Care Team (Late st Contact Info) Description 12/05/2024 12:10 PM CDT Lab Visit Laboratory at [address] [address] Dizzy Social History Tobacco Use Types Packs/Day Years Used Date Smoking Tobacco: Never Smokeless Tobacco: Never PHQ-2 Answer Date Recorded PHQ-2 Score 0 12/06/2024 Comments No Sex and Gender Information Value Date Recorded Sex Assigned at Not on file Legal Sex Female 11:58 AM CDT Gender Identity Not on file Sexual Orientation Not on file documented as of this encounter Plan of Treatment Not on file documented as of this encounter Procedures Procedure Name Priority Date/Time Associated Diagnosis Comments TEST (URINE) STAT 12/05/2024 12:29 PM CDT Dizzy TSH, SENSITIVE Routine 12/05/2024 12:23 PM CDT Dizzy HEMOGLOBIN, BLOOD STAT 12/05/2024 12: 23 PM CDT Dizzy documented in this encounter Results * Test (Urine) (12/05/2024 12:29 PM CDT) HCG, Urine Negative Negative 12/05/2024 12:33 PM CDT [facility] Urine Non-blood Collection / Unknown 12/05/2024 12:29 PM CDT 12/05/2024 12:29 PM CDT Trish Queen MD LAB_1 Final Result Performing Organization Address [facility] de Phone Number [facility] CLIA: [id number] [place] [address] * TSH (12/05/2024 12:23 PM CDT) TSH, Sensitive 0.89 0.30 - 4.50 uIU/mL 12/05/2024 3:30 PM CDT [facility] Blood Venipuncture / Unknown 12/05/2024 12:23 PM CDT 12/05/2024 12:25 PM CDT us Trish Queen MD LAB_1 Final Result Performing Organization Address [facility] de Phone Number [facility] CLIA: [id number] [address] [place] [address] * Hemoglobin, Blood (12/05/2024 12:23 PM CDT) Hemoglobin 12.9 12.0 - 15.5 g/dL 12/05/2024 12:30 PM CDT [facility] Blood Venipuncture / Unknown 12/05/2024 12:23 PM CDT 12/05/2024 12:25 PM CDT Trish Queen MD LAB_1 Final Result Performing Organization Address City/[facility] Co de Phone Number [facility] CLIA: [id number] [place] [address] documented in this encounter Visit Diagnoses Diagnosis Dizzy Dizziness and giddiness documented in this encounter Care Teams Pr Manager Relationship Specialty Start Date End Date No Primary/Referring, Phy PCP - General 12/04/24 documented as of this encounter
--- OUTSIDE RECORDS SUMMARY | 2024-12-06 10:00 | XMS_ITS | Encounter Summary ---
Author Organization [facility] Address [address], [place] [address] Care Team Providers Care Rigger Helper Name Role Phone No Primary/Referring, Phy Primary Care Provider Unavailable Reason for Visit * Reason Comments Concerns Dizziness-Wednesday Health Maintanence Declined Encounter Details Date Type Department Care Team (Latest Contact Info) Description 12/06/2024 10:00 AM CDT Office Visit [facility] [address] [place] [phone] Talisha Rascon PA-C [id number] [place] [address] Lightheadedness (Primary Dx); Pre-syncope; Tachycardia Social History Tobacco Use Types Packs/Day Years Used Date Smoking Tobacco: Never Smokeless Tobacco: Never Alcohol Use Standard Drinks/Week Comments Not Currently 0 (1 standard drink = 0.6 oz pur e alcohol) PHQ-2 Answer Date Recorded PHQ-2 Score 0 12/06/2024 Comments No Sex and Gender Information Value Date Recorded Sex Assigned at Not on file Legal Sex Female 11:58 AM CDT Gender Identity Not on file Sexual Orientation Not on file documented as of this encounter Last Filed Vital Signs Vital Sign Reading Time Taken Comments Blood Pressure 103/72 12/06/2024 9:57 AM CDT Pulse 84 12/06/2024 9:57 AM CDT Temperature 37.1 C (98.7 F) 12/06/2024 9:57 AM CDT Respiratory Rate 12 12/06/2024 9:57 AM CDT Oxygen Saturation - - Inhaled Oxygen Concentration - - Weight 71.4 kg (157 lb 8 oz) 12/06/2024 9:57 AM CDT Height 167 cm (5' 5.75) 12/06/2024 9:57 AM CDT Body Mass Index 25.61 12/06/2024 9:57 AM CDT documented in this encounter Progress Notes * Talisha Rascon PA-C - 12/06/2024 10:00 AM CDT Historical: Chief Complaint Patient presents with Concerns Dizziness-Wednesday Health Maintanence Declined Dizziness How long have you been having these symptoms? 3day(s)-Wednesday Would you describe your dizziness as being off-balance, having a sense of movement/spinning or lightheadedness? YES being off-balance and lightheadedness Is your dizziness constant or does it come and go? comes and goes How often do you have these symptoms? daily or more frequently Do you feel faint or have you fainted or fallen due to these symptoms? YES, felt faint Does your dizziness get worse with head movement, rolling over in bed or driving? No-Random Does your dizziness get worse when going from sitting to standing? No, it went from standing to sitting Have you had any recent infections or head injuries? No Do you have any ear pressure, pain, ringing or new hearing loss? No Have you had any vision changes, speech changes, confusion, headaches or chest pain? No Have you ever had dizziness like this before? No-during covid Have you tried any treatments? No History of Present Illness Kelli Cowart is a 39 year old female who presents with episodes of dizziness and near syncope. This is follow up to an urgent care and [place] [place] ED visit yesterday. She experiences dizziness and near syncope since Wednesday, with facial flushing, weakness, blurred and mcnamara vision, lethargy, and heavy muscles. Episodes include shakiness and shivering without fever following increased heart rate. No chest pain, vertigo, or significant headaches. Urgent care/ED blood tests, including troponin and D-dimer, were normal. An EKG was performed initially at . Cardiology consulted who recommended Holter and echo. Given some chest discomfort that developed while she was in urgent care it was recommended she go to the ED for further evaluation. Inthe ED work up was unremarkable. A Zio patch heart monitor was placed. She states she is to wear it for 2 weeks. She feels better today than yesterday. No new medications or dietary changes. Caffeine intake is one cup of coffee in the morning. No significant sleep pattern changes, though she woke up feeling slightly off at 2 AM. Family history includes a grandfather with prediabetes, but no heart rhythm issues. She is active, runs regularly, and felt fine during her last run. 6 children at home. None with serious respiratory illness but she is wondering if her current symptoms might be related to a viral illness and she felt somewhat similar with a past COVID infection. I have personally reviewed the patient's allergies, medications, and past medical history in detailand updated the patient record as necessary. Observed: BP 103/72 (BP Location: Left Arm, BP Cuff Size: Regular) Pulse 84 Temp 98.7 ??F (37.1 ??C) (Oral) Resp 12 Ht 5' 5.75 (1.67 m) Wt 157 lb 8 oz (71.4 kg) LMP 11/23/2024 (Exact Date) BMI 25.61 kg/m?? Physical Exam: General Appearance: alert, well appearing, and in no apparent distress Heart: regular rate and rhythm, no murmurs, gallops or rubs, and normal S1 and S2 Lungs: clear to auscultation, no wheezes, rales or rhonchi, and equal breath sounds throughout Assessment/Plan: Lightheadedness Pre-syncope Tachycardia Assessment & Plan Lightheadedness, dizziness, and palpitations Intermittent episodes with tachycardia up to 120 bpm. Recent tests show no significant findings. Differential includes viral illness or post-viral syndrome. No cardiac issues evident. Symptoms slightly improved. - Continue heart monitor for two weeks. She plans to set up a follow up appointment with a clinician through the [facility] [place] system. If she has difficulty obtaining her heart monitor results she can definitely reach out to me and we can try to access those. - Ensure adequate hydration and nutrition. - Rest and avoid strenuous activities. - Follow up with primary care or cardiology if symptoms persist or worsen. Talisha Rascon PA-C documented in this encounter Plan of Treatment Not on file documented as of this encounter Visit Diagnoses Diagnosis Lightheadedness- Primary Dizziness and giddiness Pre-syncope Syncope and collapse Tachycardia Tachycardia, unspecified documented in this encounter Care Teams Rigger Helper Relationship Specialty Start Date End Date No Primary/Referring, Phy PCP - General 12/04/24 documented as of this encounter
--- OUTSIDE RECORDS SUMMARY | 2024-12-08 00:32 | XMS_ITS | Encounter Summary ---
Author Organization [facility] Address [address] [place] [address] Care Team Providers Care Rn Shift Mgr Name Role Phone No Ref-Primary, Physician Primary Care Provider Esther Stoddard CNM Unavailable [phone] Janice Clark CNM Unavailable [phone] Kelli Austin APRN CNM Unavailable Unavaila minesh Clark Moraima CNM Unavailable Venus Robertson CNM Unavailable [phone] Kelli Austin APRN CNM Unavailable Unavaila minesh Clark Moraima CNM Unavailable Mercy Randall APRN CNM Unavailable [phone] Kelli Austin APRN CNM Unavailable Unavaila Mercy Pacheco APRN CNM Unavailable [phone] Eduardo Moraima CNM Unavailable Encounter Details Date Type Department Care Team (Late st Contact Info) Description 03/14/2021 [facility] Women's [address] [place] [address] Radha Foote, RN Social History [...] Answer Date Recorded PHQ-2 Score 0 02/20/2021 [place] Depression Scale Answer Date Recorded [place] Depression Score 4 10/13/2018 Last EPDS Self Harm Result Not on file 10/13 Education Answer Date Recorded What is the highest level of school you have completed or the highest degree you have received? Some college, no degree 02/20/2021 Comments Yes Sex and Gender Information Value Date Recorded Sex Assigned at Female 01/13/2021 2:33 PM DESK PEN SET ASSEMBLER Legal Sex Female 1:03 PM DESK PEN SET ASSEMBLER Gender Identity Female 01/13/2021 2:33 PM DESK PEN SET ASSEMBLER Sexual Orientation Straight 01/13/2021 2: 33 PM DESK PEN SET ASSEMBLER Occupation Industry Job Start Date Job End Date stay at home Mom Not on file Not on file Not on file COVID-19 Exposure Response Date Recorded In the last month, have you been in contact with someone who was confirmed or suspected to have Coronavirus / COVID-19? No / Unsure 03/17/2021 2:03 PM DESK PEN SET ASSEMBLER documented as of this encounter Plan of Treatment Not on file documented as of this encounter Visit Diagnoses Not on filedocumented in this encounter Care Teams Rn Shift Mgr Relationship Specialty Start Date End Date No Ref-Primary, Physician PCP - General 02/24/18 Esther Stoddard CNM [address] [place] [address] Assigned OBGYN Provider 03/16/21 2 Janice Clark CNM [address] [address] Assigned OBGYN Provider 10/04/21 2 Kelli Austin APRN CNM Assigned OBGYN Provider 11/01/21 11/28/21 Janice Clark CNM [address] [place] [address] Assigned OBGYN Provider 12/27/21 Venus Robertson CNM [address] [place] [address] Assigned OBGYN Provider 11/29/2112/26 Kelli Austin APRN CNM Assigned OBGYN Provider 01/31/22 03/20/22 Janice Clark CNM [address] [place] [address] Assigned OBGYN Provider 03/21/22 3 Mercy Randall APRN CNM [address] [place] [address] [address] [place] [address] Assigned OBGYN Provider 11/07/22 Kelli Austin APRN CNM Assigned OBGYN Provider 04/23/23 06/21/23 Mercy Randall APRN CNM [address] [place] [address] [address] [place] [address] Assigned OBGYN Provider 06/22/23 Janice Clark CNM [address] [place] [address] Assigned OBGYN Provider 11/22/2312/20 documented as of this encounter
--- OUTSIDE RECORDS SUMMARY | 2024-12-08 00:33 | XMS_ITS | Encounter Summary ---
Author Organization [facility] Address [address], [place] [address] Care Team Providers Care Fire Prevention Officer Name Role Phone No Primary/Referring, Phy Primary Care Provider Unavailable Reason for Visit * Reason Comments DIZZINESS Encounter Details Date Type Department Care Team (Late st Contact Info) Description 12/04/2024 Nurse Triage [facility] [address] [place] [address] Found, No Pcp, [address] [place] [address] DIZZINESS Social History Tobacco Use Types Packs/Day [...] has NOT been evaluated by doctor (or FEATHER CURLING MACHINE OPERATOR/PA) forthis (Exception: Dizziness caused by heat exposure, sudden standing, or poor fluid intake.) Answer Assessment - Initial Assessment Questions 1. DESCRIPTION: Describe your dizziness. Lightheaded upon standing at [employer] and sitting down, felt like I wasn't [...] Change in head position (sitting down at [employer] yest) 7. HEART RATE: Can you tell [...] menstrual period? no Protocols used: Dizziness - [id number] * Kaitlynn Pederson - 12/04/2024 1:11 PM CDT Caller reports the following red flag symptoms: pt has dizziness, lightheaded and heart racing Plan: Transferred directly to appropriate RN. documented in this encounter Plan of Treatment Not on file documented as of this encounter Visit Diagnoses Not on filedocumented in this encounter Care Teams Fire Prevention Officer Relationship Specialty Start Date End Date No Primary/Referring, Phy PCP - General 12/04/24 documented as of this encounter
--- OUTSIDE RECORDS SUMMARY | 2024-12-08 00:33 | XMS_ITS | Clinical Summary ---
Author Organization [facility] Address [address] [place] [address] Care Team Providers Care Product Safety Administrator Name Role Phone No Ref-Primary, Physician Primary [...] first t rimester 10/29/2021 Overview (02/11/2022): Clinic/Hospital: [facility] Partner Name: Afshin Ultrasound predicts sex: Childrens [...] Answer Date Recorded PHQ-2 Score 0 05/04/2022 [place] Depression Scale Answer Date Recorded Last EPDS [...] Sex Assigned at Female 01/13/2021 2:33 PM FILM DRYING MACHINE OPERATOR Legal Sex Female 1:03 PM FILM DRYING MACHINE OPERATOR Gender Identity Female 01/13/2021 2:33 PM FILM DRYING MACHINE OPERATOR Sexual Orientation Straight 01/13/2021 2: 33 PM FILM DRYING MACHINE OPERATOR Occupation Industry Job Start Date Job End Date stay at home Mom Not on file Not on file Not on file Last Filed Vital Signs Vital Sign Reading Time Taken Comments Blood Pressure 116/70 06/04/2022 10:08 AM CDT Pulse 95 04/20/2022 8:28 AM FILM DRYING MACHINE OPERATOR Temperature 36.9 C (98.5 F) 04/20/2022 8:28 AM FILM DRYING MACHINE OPERATOR Respiratory Rate 16 04/20/2022 8:28 AM FILM DRYING MACHINE OPERATOR Oxygen Saturation 100% 10/27/2021 8:26 AM CDT Inhaled Oxygen Concentration - - Weight 68.2 kg (150 lb 6.4 oz) 06/04/2022 10:08 AM CDT Height 167.6 cm (5' 6) 04/19/2022 11:00 AM FILM DRYING MACHINE OPERATOR Body Mass Index 24.28 04/19/2022 11:00 AM FILM DRYING MACHINE OPERATOR Plan of Treatment Health Maintenance Due Date [...] BASIC METABOLIC PANEL STAT 03/04/2021 6:31 PM FILM DRYING MACHINE OPERATOR from Last 3 Months or Most Recently [...] component of this testing was completed at [facility] 10/03/2021 1:43 PM CDT [facility] LABS Brushing CERVIX UTERI STRUCTURE / Unknown 10/01/2021 11:04 AM CDT 10/01/2021 11:28 AM CDT Janice Clark CNM LAB - BEAKER AP Final Result SPECIALTY LABS Specialty Lab [address] [facility], [address] [address], [facility] [phone] * HPV High Risk Types DNA Cervical (10/01/2021 11:04 AM CDT) Other HR HPV Negative Negative 10/07/2021 1:00 PM CDT MOLECULAR DIAGNOSTICS HPV16 DNA Negative Negative 10/07/2021 1:00 PM CDT MOLECULAR DIAGNOSTICS HPV18 DNA Negative Negative 10/07/2021 1:00 PM CDT MOLECULAR DIAGNOSTICS FINAL DIAGNOSIS This patient's sample is negative for HPV DNA. This test was developed and its performance characteristics determined by the [facility], Molecular Diagnostics Laboratory. It has not [...] UM MOLECULAR DIAGNOSTICS Molecular Diagnostics [address] [facility] [address], [address] [address], [facility] [phone] * HIV Antigen Antibody Combo (09/25/2021 2:36 [...] Result UM SPECIALTY CORE/PROT/ENDO Specialty Core/Prot/Endo [address] [facility] [address] [facility], Room [address] [phone] * Hepatitis C antibody (09/25/2021 2:36 PM [...] Result UM SPECIALTY CORE/PROT/ENDO Specialty Core/Prot/Endo [address] [facility] [address] [facility], Room [address] [phone] * (ABNORMAL) Basic metabolic panel (BMP) (03/04/2021 6:31 PM FILM DRYING MACHINE OPERATOR) Sodium 139 133 - 144 mmol/L 03/04/2021 7:05 PM [facility] Potassium (POCT) 3.3(L) 3.4 - 5.3 mmol/L 03/04/2021 7:05 PM [facility] Chloride (POCT) 108 94 - 109 mmol/L 03/04/2021 7:05 PM [facility] Carbon Dioxide (CO2) (POCT) 24 20 - 32 mmol/L 03/04/2021 7:05 PM [facility] Anion Gap (POCT) 7 3 - 14 mmol/L 03/04/2021 7:05 PM [facility] Urea Nitrogen (POCT) 13 7 - 30 mg/dL 03/04/2021 7:05 PM [facility] Creatinine 0.67 0.52 - 1.04 mg/dL 03/04/2021 7:05 PM [facility] Calcium 9.1 8.5 - 10.1 mg/dL 03/04/2021 7:05 PM [facility] Glucose (POCT) 133(H) 70 - 99 mg/dL 03/04/2021 7:05 PM [facility] GFR Estimate >90 >60 mL/min/1.7 3m2 03/04/2021 7:05 PM [facility] Comment:Effective January 302020 eGFRcr in adults is calculated using the 2020 CKD-EPI creatinine equation which includes age and gender (Ajith et al., NEJM, DOI: 10.1056/EXUDqs7250039) Blood STRUCTURE OF RIGHT UPPER LIMB / Unknown Venipuncture / Unknown 03/04/2021 6:31 PM FILM DRYING MACHINE OPERATOR 03/04/2021 6:45 PM FILM DRYING MACHINE OPERATOR us Humberto Villalta MD LAB - BLOOD ORDERABLES Fi nal Result LABORATORY [facility] [address] Lab (1st floor, no room number) [place] [address], [place] [phone] from Last 3 Months or Most Recently Relevant to Health Maintenance Insurance BCBS OUT OF STATE BCBS OUT OF STATE Advance Directives For more information, please contact: [phone] * Full Code (Latest Code Status on [...] patie nt/ legal decision maker Care Teams Product Safety Administrator Relationship Specialty Start Date End Date No Ref-Primary, Physician PCP - General 02/24/18
--- OUTSIDE RECORDS SUMMARY | 2024-12-08 00:33 | XMS_ITS | Encounter Summary ---
Author Organization [facility] Address [address] [place] [address] Care Team Providers Care Supervisor Border Department Name Role Phone No Primary/Referring, Phy Primary Care Provider Unavailable Reason for Visit * Reason Comments Pre-visit Planning Encounter Details Date Type Department Care Team ([facility] st Contact Info) Description 12/04/2024 Telephone Obstetrics & Gynecology at [address] [address] Annia Mccullough MD [address] [place] [phone] Pre-visit Planning Social History Tobacco Use [...] on filedocumented in this encounter Care Teams Supervisor Border Department Relationship Specialty Start Date End Date No Primary/Referring, Phy PCP - General 12/04/24 documented as of this encounter
--- OUTSIDE RECORDS SUMMARY | 2024-12-08 00:33 | XMS_ITS | Clinical Summary ---
Author Organization [facility] Address [address] [place] [address] Care Team Providers Care Athletic Monitor Name Role Phone Pcp, No Primary Care Provider Unavailabl e Allergies No known active allergies Medications mupirocin 2% ointmentIndicat ions:Nasal sore Apply topically to affected area(s) two times daily for 14 days. 22 g 11/19/19 25 Encounters Date Type Department Care Team Description 11/04/2024 3:35 PM CDT Office Visit [facility] - [address] [address] Joann Jasso NP Nose Problem [...] patient's age to complete this topic Insurance [facility] [place] [address] Care Teams Athletic Monitor Relationship Specialty Start Date End Date Pcp, No . PCP - General 11/04/24
--- OUTSIDE RECORDS SUMMARY | 2024-12-08 00:33 | XMS_ITS | Encounter Summary ---
Author Organization [facility] Address [address] [place] [address] Care Team Providers Care Command And Control Officer Name Role Phone No Primary/Referring, Phy Primary Care Provider Unavailable Encounter Details Date Type Department Care Team (Late st Contact Info) Description 12/05/2024 Results Follow-Up [facility] [address] [address] Jennifer Cerna RN Social History Tobacco Use [...] on filedocumented in this encounter Care Teams Command And Control Officer Relationship Specialty Start Date End Date No Primary/Referring, Phy PCP - General 12/04/24 documented as of this encounter
--- OUTSIDE RECORDS SUMMARY | 2024-12-08 00:33 | XMS_ITS | Encounter Summary ---
Author Organization [facility] Address [address] [place] [address] Care Team Providers Care Uke Operator Name Role Phone No Ref-Primary, Physician Primary [...] Team (Late st Contact Info) Description 09/15/2021 [facility] Advice [facility] Women's [address] [place] [address] Chikis Ness, RN Social History [...] Answer Date Recorded PHQ-2 Score 0 09/18/2021 [place] Depression Scale Answer Date Recorded [place] Depression Score 4 10/13/2018 Last EPDS Self Harm Result Not on file 10/13 Education Answer Date Recorded What is the highest level of school you have completed or the highest degree you have received? Some college, no degree 02/20/2021 Comments Yes Sex and Gender Information Value Date Recorded Sex Assigned at Female 01/13/2021 2:33 PM GENERAL PARTNER Legal Sex Female 1:03 PM GENERAL PARTNER Gender Identity Female 01/13/2021 2:33 PM GENERAL PARTNER Sexual Orientation Straight 01/13/2021 2: 33 PM GENERAL PARTNER Occupation Industry Job Start Date Job End [...] on filedocumented in this encounter Care Teams Uke Operator Relationship Specialty Start Date End Date No Ref-Primary, Physician PCP - General 02/24/18 Esther Stoddard CNM [address] [place] [address] Assigned OBGYN Provider 03/16/21 2 Janice Clark CNM [address] [address] Assigned OBGYN Provider 10/04/21 2 Kelli Austin APRN CNM Assigned OBGYN Provider 11/01/21 11/28/21 Jnaice Clark CNM [address] [place] [address] Assigned OBGYN Provider 12/27/21 Venus Robertson CNM [address] [place] [address] Assigned OBGYN Provider 11/29/2112/26 Kelli Austin APRN CNM Assigned OBGYN Provider 01/31/22 03/20/22 Janice Clark CNM [address] [place] [address] Assigned OBGYN Provider 03/21/22 3 Mercy Randall APRN CNM [address] [place], [place] [address] [place] [address] Assigned OBGYN Provider 11/07/22 Kelli Austin APRN CNPamela Assigned OBGYN Provider 04/23/23 06/21/23 Mercy Randall APRN CNM [address] [place], [place] [address] [place] [address] Assigned OBGYN Provider 06/22/23 Janice Clark CNM [address] [place] [address] Assigned OBGYN Provider 11/22/2312/20 documented as of this encounter
--- OUTSIDE RECORDS SUMMARY | 2024-12-08 00:33 | XMS_ITS | Clinical Summary ---
Author Organization [facility] Address [address] [place] [address] Care Team Providers Care Histology Technician Name Role Phone No Primary/Referring, Phy [...] for each transition of care or referral. [facility] Allergies No known active allergies Medications cetirizine (ZYRTEC) 10 MG tablet Take 1 Tablet (10 mg) by mouth daily. Active mupirocin (BACTROBAN) 2 % ointment Apply topically two times a day. 11/05/19 25 025 Discontinued Encounters Date Type Department Care Team Description 12/06/2024 10:00 AM CDT Office Visit [address] [address] Talisha Rascon PA-C Lightheadedness (Primary Dx); Pre-syncope; Tachycardia 12/05/2024 12:10 PM CDT Lab Visit Laboratory at [address] [address] Dizzy 12/05/2024 11:20 AM CDT Office Visit [facility] [address] [address] Trish Queen MD Dizzy (Primary Dx); Heart palpitations; Lightheadedness 12/05/2024 Results Follow-Up [facility] [place] [address] [place] [phone] Jennifer Cerna RN 12/04/2024 Nurse Triage [facility] [address] [place] [phone] Found, No Pcp, DIZZINESS 12/04/2024 Telephone Obstetrics & Gynecology at [facility] [address] [place] [address] Annia Mccullough MD Pre-visit Planning from Last 3 Months Immunizations Immunization Administration Dates Next Due Tdap 02/11/2022,07/27/2018 Social History Tobacco Use Types Packs/Day Years Used Date Smoking Tobacco: Never Smokeless Tobacco: Never Tobacco Cessation:Counseling Given: Not Answered Alcohol Use Standard Drinks/Week Comments Not Currently [...] 12 12/06/2024 9:57 AM CDT Oxygen Saturation 100% 12/05/2024 11:18 AM CDT Inhaled Oxygen Concentration - - Weight 71.4 kg (157 lb 8 oz) 12/06/2024 9:57 AM CDT Height 167 cm (5' 5.75) 12/06/2024 9:57 AM CDT Body Mass Index 25.61 12/06/2024 9:57 AM CDT Plan of Treatment Health Maintenance Due Date [...] Urine Negative Negative 12/05/2024 12:33 PM CDT [facility] Urine Non-blood Collection / Unknown 12/05/2024 12:29 PM CDT 12/05/2024 12:29 PM CDT us Trish Queen MD LAB_1 Final Result [facility] CLIA: [id number] [address] [place] [address] * TSH (12/05/2024 12:23 PM CDT) TSH, Sensitive 0.89 0.30 - 4.50 uIU/mL 12/05/2024 3:30 PM CDT [facility] Blood Venipuncture / Unknown 12/05/2024 12:23 PM CDT 12/05/2024 12:25 PM CDT Trish Queen MD LAB_1 Final Result [facility] CLIA: [id number] [address] [place] [address] * Hemoglobin, Blood (12/05/2024 12:23 PM CDT) Hemoglobin 12.9 12.0 - 15.5 g/dL 12/05/2024 12:30 PM CDT [facility] Blood Venipuncture / Unknown 12/05/2024 12:23 PM CDT 12/05/2024 12:25 PM CDT Trish Queen MD LAB_1 Final Result Performing Organization Address City/[facility]/ZIP Co de Phone Number [facility] CLIA: [id number] [place] [address] * EKG Outpatient (12/05/2024 12:07 PM CDT) Ventricular Rate 79 BPM [facility] Atrial Rate 79 BPM [facility] P-R Interval 124 ms [facility] QRS Duration 86 ms [facility] QT 388 ms [facility] QTC 444 ms [facility] P [place] 36 degrees [facility] R [place] 95 degrees [facility] T [place] -11 degrees [facility] 12/05/2024 12:0 7 [...] Lex Baxter ([id number]) on 12/05/2024 1:27:15 PM us Trish Queen MD PN ECG ORDERABLES Final Resu lt [facility] [address] [place] [address] from Last 3 Months Insurance [facility] Care Teams Histology Technician Relationship Specialty Start Date End Date No Primary/Referring, Phy PCP - General 12/04/24
[2024-12-08 00:37] VITALS: BP 140/83; PULSE 73; RESP 18; TEMP 36.7; O2SAT 100; BMI 25.0
[2024-12-08 01:17] VITALS: BP 121/82; PULSE 69; RESP 18; O2SAT 99
--- NOTE | 2024-12-08 01:36 | ED_ITS ---
HPI - Chest Pain General Date Seen: 12/08/24 Chief Complaint: Chest Pain Stated Complaint: chest pain Time Seen by Provider: 12/08/24 00:50 Source: patient Mode of arrival: ambulatory Limitations: no limitations History of Present Illness HPI narrative: Patient is a 39-year-old female who awoke from sleep with sharp pain in left side of her chest. This radiated through to her back. No radiation to the left arm or jaw. There is no associated diaphoresis or dyspnea. She has never had any exertional chest pain. She had a virus two weeks ago and since that time has felt muscle fatigue and heaviness. She denies anxiety. She was just seen here three days ago and had a full cardiac workup because of palpitations. She has a Zio patch in place. Please refer to the note from that day regarding family history and risk factors. Tonight she waited for about 30 minutes to see if the pain would passing when it did not she presents to the emergency department. It is mainly gone now without specific treatment. Related Data Home Medications ?Medication ?Instructions ?Recorded ?Confirmed cetirizine 10 mg tablet (24Hour 10 mg PO DAILY PRN 09/2212/05/24 Allergy) Allergies Allergy/AdvReac Type Severity Reaction Status Date / Time No Known Drug Allergies Allergy Verified 12/08/24 00:43 Review of Systems Narrative Review of systems is outlined above otherwise noted to be negative. She has an appointment to establish care with a nurse practitioner in [place]. [facility] Medical History No significant past medical history Surgical History No significant past surgical history Social History Smoking Status: Never smoker Second hand tobacco smoke exposure: No How often do you have a drink containing alcohol: never AUDIT-C Alcohol total score: 0 Non-prescribed substance use: denies use service: No Exam Narrative Exam Narrative: Vitals noted. HEENT: Conjunctiva clear. Neck is supple without adenopathy, thyromegaly, carotid bruit. Lungs: Clear to auscultation in all pandey. No wheezes, rales, rhonchi. Heart: Regular rate and rhythm without murmur. She has some minor tenderness along the upper left costochondral joints. No palpable tenderness in the back. Abdomen: Soft and nontender. No guarding, rigidity, rebound. Bowel sounds are normal. No palpable masses. Extremities: No cyanosis or edema. Good distal pulses. Skin: No abnormalities noted of the exposed skin. Neurologic: Awake, alert, fully oriented. Neurologic exam is nonfocal. Const Vital Signs, click to edit/add: Vital Signs - 24 hr 12/08/24 00:37 12/08/24 01:17 Temperature 98.1 F Pulse Rate [Pulse Oximeter] 73 69 Respiratory Rate 18 18 Blood Pressure [Right Upper Arm] 140/83 H 121/82 Pulse Oximetry 100 99 Oxygen Delivery Method Room Air Room Air Course Course ED Course: Patient seen and examined. We discussed that sharp pain at rest is not likely cardiac particularly at her age and with her lack of risk factors. I did offer to repeat the lab evaluation that was done three days ago but I do not feel that is necessary. Her EKG tonight shows normal sinus rhythm with a rate of 68. No acute ST or T-wave changes. She was comfortable not repeating labs after we discussed costochondritis and anxiety as more likely causes of her pain. She was discharged in stable condition. Vital Signs Vital signs: Initial Vital Signs Temperature 98.1 F 12/08/24 00:37 Temperature Source Temporal Artery Scan 12/08/24 00:37 Pulse Rate 73 12/08/24 00:37 Pulse Rhythm Regular 12/08/24 00:37 Respiratory Rate 18 12/08/24 00:37 Blood Pressure 140/83 H 12/08/24 00:37 Blood Pressure Mean 102 12/08/24 00:37 Blood Pressure Position Semi-Fowlers 12/08/24 00:37 Pulse Oximetry 100 12/08/24 00:37 Oxygen Delivery Method Room Air 12/08/24 00:37 Vital Signs Temperature 98.1 F 12/08/24 00:37 Pulse Rate 73 12/08/24 00:37 Respiratory Rate 18 12/08/24 00:37 Blood Pressure 140/83 H 12/08/24 00:37 Pulse Oximetry 100 12/08/24 00:37 Oxygen Delivery Method Room Air 12/08/24 00:37 Temperature 98.1 F 12/08/24 00:37 Pulse Rate 69 12/08/24 01:17 Respiratory Rate 18 12/08/24 01:17 Blood Pressure 121/82 12/08/24 01:17 Pulse Oximetry 99 12/08/24 01:17 Oxygen Delivery Method Room Air 12/08/24 01:17 Discharge Plan Discharge Clinical Impression: Atypical chest pain, Acute costochondritis Patient Disposition: Home, Self-Care Condition: Stable Additional Instructions: Rest, hydrate, Ibuprofen 600 mg three times daily with food. Follow up in [place] as scheduled. Prescriptions: No Action cetirizine [24Hour Allergy] 10 mg tablet 10 mg PO DAILY PRN Follow Up/Referrals: Provider,Not a Local [Primary Care Provider, Family Practice] Stand Alone Forms: [employer] Info Instructions
== END 2024-12-08 01:19 | disposition home or self-care (01) ==
LOC: ED 01:13
PROVIDERS: Emergency Provider Family Medicine
DX: R07.9 Chest pain, unspecified (principal); M94.0 Chondrocostal junction syndrome [Tietze]
CPT/HCPCS: 93005; 99281; 99284